=== PATIENT | female | born 1995 | race Caucasian/White ===

== ENCOUNTER 2017-12-10 23:54 | Emergency (ER) | payer SELFPAY ==
[2017-12-11] MEDS ORDERED: diphenhydrAMINE 50 MG Cap PO ONE (00:32)
[2017-12-11] MEDS ORDERED: methylPREDNISolone Sodium Succinate 125 MG/2 ML SDV IM ONE (00:33)
[2017-12-11] MEDS ORDERED: Famotidine 20 MG Tab PO ONE (00:33)
--- NOTE | 2017-12-11 00:39 | EDM.PDOC ---
ED HPI GENERAL MEDICAL PROBLEM - General Chief Complaint: Skin Complaint Stated Complaint: MORELOS Time Seen by Provider: 12/11/17 00:34 Source of Information: Reports: Patient - History of Present Illness INITIAL COMMENTS - FREE TEXT/NARRATIVE: HISTORY AND PHYSICAL: History of present illness: []And presents with an urticarial rash that begin on her left wrist behind her right ear and on her neck she also has lesions on her left buttock and left thigh, lesions began at 8 PM while at work, she's had these symptoms before last March she is unable to determine what she is allergic to her reacting to, as she works at [employer] of the possibilities are an list in that with 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 Past medical history: As per history of present illness and as reviewed below otherwise noncontributory. Surgical history: As per history of present illness and as reviewed below otherwise noncontributory. Social history: No reported history of drug or alcohol abuse. Family history: As per history of present illness and as reviewed below otherwise noncontributory. Physical exam: HEENT: Atraumatic, normocephalic, pupils reactive, negative for conjunctival pallor or scleral icterus, mucous membranes moist, throat clear, neck supple, nontender, trachea midline. no lip swelling tongue swelling or oral pharyngeal edema no stridor Lungs: Clear to auscultation, breath sounds equal bilaterally, chest nontender. Heart: S1S2, regular, negative for clicks, rubs, or JVD. Abdomen: Soft, nondistended, nontender. Negative for masses or hepatosplenomegaly. Negative for costovertebral tenderness. Pelvis: Stable nontender. Genitourinary: Deferred. Rectal: Deferred. Extremities: Atraumatic, negative for cords or calf pain. Neurovascular unremarkable. Neuro: Awake, alert, oriented. Cranial nerves II through XII unremarkable. Cerebellum unremarkable. Motor and sensory unremarkable throughout. Exam nonfocal. urticarial rash left wrist behind the right ear the nape of her neck on the right as well as her left buttock has 3 lesions and one lesion on her lateral left thigh Diagnostics: [ clinical ] Therapeutics: [ Solu-Medrol 125 mg IM Benadryl 50 mg by mouth Famotidine 20 mg by mouth EpiPen adult provided Continue Benadryl and Zantac Consider formal allergy testing ] Impression: [ allergic dermatitis] Definitive disposition and diagnosis as appropriate pending reevaluation and review of above. - Related Data Allergies Allergy/AdvReac Type Severity Reaction Status Date / Time No Known Allergies Allergy Verified 12/10/17 23:57 Home Meds: Home Meds . [No Known Home Meds] 12/10/17 [History] Past Medical History - Past Health History Medical/Surgical History: Denies Medical/Surgical History FULLERETTE History: Reports: Social & Family History - Family History Family Medical History: Noncontributory - Tobacco Use Smoking Status *Q: Never Smoker - Recreational Drug Use Recreational Drug Use: No ED ROS GENERAL - Review of Systems Review Of Systems: ROS reveals no pertinent complaints other than HPI. ED EXAM, SKIN/RASH Exam: See Below Course - Vital Signs Last Recorded V/S: Last Vital Signs Temp 98 F 12/10/17 23:54 Pulse 71 12/10/17 23:54 Resp 18 12/10/17 23:54 BP 123/50 L 12/10/17 23:54 Pulse Ox 94 L 12/10/17 23:54 - Orders/Labs/Meds Orders: Active Orders 24 hr Category Date Time Status Famotidine [Pepcid] Med 12/11/17 00:33 Once 20 mg PO ONETIME ONE diphenhydrAMINE [Benadryl] Med 12/11/17 00:32 Once 50 mg PO ONETIME ONE methylPREDNISolone Sod Succ [Solu-MEDROL] Med 12/11/17 00:33 Once 125 mg IM ONETIME ONE Departure - Departure Time of Disposition: 00:37 Disposition: Home, Self-Care 01 Condition: Good Clinical Impression: Urticaria - Discharge Information Referrals: PCP,None [Primary Care Provider] - Additional Instructions: Benadryl 50 mg every 4-6 hours as needed Zantac 150 milligrams 2 times daily as needed These 2 medications may be taken together EpiPen adult as directed provided to be used for throat swelling or difficulty breathing Follow-up with primary care in 2 weeks sooner as needed consider formal allergy testing with primary care [facility] [address] [place] [id number] The following information is given to patients seen in the emergency department who are being discharged to home. This information is to outline your options for follow-up care. We provide all patients seen in our emergency department with a follow-up referral. The need for follow-up, as well as the timing and circumstances, are variable depending upon the specifics of your emergency department visit. If you don't have a primary care physician on staff, we will provide you with a referral. We always advise you to contact your personal physician following an emergency department visit to inform them of the circumstance of the visit and for follow-up with them and/or the need for any referrals to a consulting specialist. The emergency department will also refer you to a specialist when appropriate. This referral assures that you have the opportunity for follow-up care with a specialist. All of these measure are taken in an effort to provide you with optimal care, which includes your follow-up. Under all circumstances we always encourage you to contact your private physician who remains a resource for coordinating your care. When calling for follow-up care, please make the office aware that this follow-up is from your recent emergency room visit. If for any reason you are refused follow-up, please contact the [facility] emergency department at and asked to speak to the emergency department charge nurse. - My Orders Last 24 Hours: My Active Orders 12/11/17 00:32 diphenhydrAMINE [Benadryl] 50 mg PO ONETIME ONE 12/11/17 00:33 Famotidine [Pepcid] 20 mg PO ONETIME ONE methylPREDNISolone Sod Succ [Solu-MEDROL] 125 mg IM ONETIME ONE - Assessment/Plan Last 24 Hours: My Active Orders 12/11/17 00:32 diphenhydrAMINE [Benadryl] 50 mg PO ONETIME ONE 12/11/17 00:33 Famotidine [Pepcid] 20 mg PO ONETIME ONE methylPREDNISolone Sod Succ [Solu-MEDROL] 125 mg IM ONETIME ONE
== END 2017-12-11 01:45 | disposition home or self-care (01) ==
LOC: MW.ED 23:54
DX: L23.9 Allergic contact dermatitis, unspecified cause (principal)
CPT/HCPCS: 96372; 99282; A9270; J2930; 99283

== ENCOUNTER 2018-05-11 14:02 | Emergency (ER) | payer OTHER ==
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
[2018-05-11] MEDS ORDERED: Ketorolac 30 MG/ML SDV IVPUSH ONE (14:33)
[2018-05-11 14:42] LABS: CHLORIDE,CL 105 mmol/L (98-107); SODIUM,NA 138 mmol/L (136-145)
--- NOTE | 2018-05-11 14:44 | CR ---
EXAMINATION: Pelvis HISTORY: Pain COMPARISON: None TECHNIQUE: AP view FINDINGS: There is no acute osseous abnormality, dislocation, or fracture. Bone mineralization and castillo int spaces are preserved. The SI joints are symmetric. The iliopectineal and ilioischial lines are in tact. An IUD projects over the sacrum. IMPRESSION: No acute osseous abnormality identified.
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
--- NOTE | 2018-05-11 14:56 | CR ---
EXAMINATION: Two-view chest (PA and Lateral views). HISTORY: Shortness of breath. FINDINGS: The trachea is midline. The cardiomediastinal silhouette is within normal limits. No pulmonary infilt rates, effusions or pneumothorax. Osseous structures appear unremarkable. IMPRESSION: No acute cardiopulmonary process.
--- NOTE | 2018-05-11 15:05 | CT ---
EXAMINATION: Non contrast CT head. Coronal and sagittal reformats. HISTORY: Pain FINDINGS: No evidence of intra or extra axial hemorrhage, mass, midline shift, hydrocephalus or edema. No hypoattenuation changes in the major vascular territories to suggest acute infarct. No abnormal intracranial calcifications are detected. No evidence of substantial vascular calcificat ions. Paranasal sinuses and mastoid air cells are well aerated without substantial findings. Orbits and gl obes are symmetric. Pituitary fossa appears unremarkable. Calvarium is intact. No evidence of skull fracture. IMPRESSION: No acute intracranial findings.
--- NOTE | 2018-05-11 15:12 | CT ---
EXAMINATION: CT cervical spine HISTORY: Pain COMPARISON: None TECHNIQUE: Axial CT images obtained through the cervical spine without contrast. Coronal and sagittal reconstructions obtained. FINDINGS: The cervical spinal alignment is normal. The vertebral body heights and disc spaces appear well-maintained. Bone mineralization is normal. No fracture or acute osseous abnormality. Paravertebr al soft tissues are clear. The lung apices are clear. IMPRESSION: 1. No acute findings demonstrated.
[2018-05-11] MEDS ORDERED: Cyclobenzaprine 10 MG Tab PO ONE (15:28)
== END 2018-05-11 16:43 | disposition home or self-care (01) ==
LOC: MW.ED 14:02
DX: S16.1XXA Strain of muscle, fascia and tendon at neck level, initial encounter (principal); S99.911A Unspecified injury of right ankle, initial encounter; V89.2XXA Person injured in unspecified motor-vehicle accident, traffic, initial encounter
CPT/HCPCS: 36415; 70450; 71046; 72125; 72170; 73610; 80053; 81001; 84703; 85025; 85610; 96374; 99285; A9270; G0390; J1885

== ENCOUNTER 2019-01-01 20:52 | Emergency (ER) | payer BC ==
[2019-01-01] MEDS ORDERED: Famotidine 20 MG/2 ML SDV IVPUSH ONE (21:17)
[2019-01-01] MEDS ORDERED: Sodium Chloride 0.9% 10 ML Syringe FLUSH PRN (21:17)
[2019-01-01] MEDS ORDERED: methylPREDNISolone Sodium Succinate 125 MG/2 ML SDV IVPUSH ONE (21:17)
[2019-01-01] MEDS ORDERED: Sodium Chloride 0.9% 2.5 ML Syringe FLUSH PRN (21:17)
[2019-01-01] MEDS ORDERED: diphenhydrAMINE 50 MG/ML SDV IVPUSH ONE (21:17)
--- NOTE | 2019-01-01 21:24 | EDM.PDOC ---
ED HPI GENERAL MEDICAL PROBLEM - General Chief Complaint: Allergic Reaction Stated Complaint: ALLERGIC REACTION Time Seen by Provider: 01/01/19 20:57 Source of Information: Reports: Patient History Limitations: Reports: No Limitations - History of Present Illness INITIAL COMMENTS - FREE TEXT/NARRATIVE: Resents reporting that she took 2 Aleve this morning at 9:00 and started with hives that are now worsening. Some of them have progressed to large water blisters. She denies wheezing, breathing problems facial or mouth swelling. She had a similar reaction before with the naproxen containing medication generalized Pain Score (Numeric/FACES): 5 - Related Data Allergies Allergy/AdvReac Type Severity Reaction Status Date / Time aspirin Allergy Rash Verified 01/01/19 21:03 naproxen [From Aleve] Allergy Rash Verified 01/01/19 21:03 Home Meds: Home Meds . 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: Musculoskeletal History: Reports: None Neurological History: Reports: None Psychiatric History: Reports: None Endocrine/Metabolic History: Reports: None Hematologic History: Reports: None Immunologic History: Reports: None Oncologic (Cancer) History: Reports: None Dermatologic History: Reports: None - Infectious Disease History Infectious Disease History: Reports: None Social & Family History - Family History Family Medical History: Noncontributory - Tobacco Use Smoking Status *Q: Never Smoker - Caffeine Use Caffeine Use: Reports: Soda - Recreational Drug Use Recreational Drug Use: No ED ROS ALLERGIC REACTION - Review of Systems Review Of Systems: ROS reveals no pertinent complaints other than HPI. ED EXAM GENERAL NO PERIP PULSE - Physical Exam Exam: See Below Exam Limited By: No Limitations General Appearance: Alert, No Apparent Distress Ears: Normal External Exam, Normal TMs Nose: Normal Inspection Throat/Mouth: Normal Inspection, Normal Oropharynx, Other (No uveal, mouth, lip or tongue swelling) Head: Atraumatic, Normocephalic Neck: Normal Inspection Respiratory/Chest: No Respiratory Distress, Lungs Clear, Normal Breath Sounds, No Accessory Muscle Use Cardiovascular: Regular Rate, Rhythm, No Murmur Back Exam: Normal Inspection Extremities: Other (Hives) Neurological: Alert, Oriented, No Motor/Sensory Deficits Psychiatric: Normal Affect, Normal Mood Skin Exam: Warm, Dry, Intact, Normal Color, Other (Hives some which have progressed to large bullae on the hands and lower extremities) Lymphatic: No Adenopathy Course - Vital Signs Last Recorded V/S: Last Vital Signs Temp 36.6 C 01/01/19 22:32 Pulse 80 01/01/19 22:32 Resp 16 01/01/19 22:32 BP 123/61 01/01/19 22:32 Pulse Ox 98 01/01/19 22:32 - Orders/Labs/Meds Meds: Medications Discontinued Medications Generic Name Dose Route Start Last Admin Trade Name Freq PRN Reason Stop Dose Admin Diphenhydramine HCl 50 mg 01/01/19 21:17 01/01/19 21:32 Benadryl IVPUSH 01/01/19 21:18 50 mg ONETIME ONE Administration Famotidine 20 mg 01/01/19 21:17 01/01/19 21:32 Pepcid IVPUSH 01/01/19 21:18 20 mg ONETIME ONE Administration Methylprednisolone Sodium Succinate 125 mg 01/01/19 21:17 01/01/19 21:32 Solu-Medrol IVPUSH 01/01/19 21:18 125 mg ONETIME ONE Administration Sodium Chloride 10 ml 01/01/19 21:17 Saline Flush FLUSH ASDIRECTED PRN Keep Vein Open Sodium Chloride 2.5 ml 01/01/19 21:17 Saline Flush FLUSH ASDIRECTED PRN Keep Vein Open Departure - Departure Time of Disposition: 21:22 Disposition: Home, Self-Care 01 Condition: Good Clinical Impression: Hives - Discharge Information Instructions: Allergies, Adult, [id number], Hives, [id number] Referrals: PCP,None [Primary Care Provider] - Forms: ED Department Discharge Additional Instructions: The following information is given to patients seen in the emergency department who are being discharged to home. This information is to outline your options for follow-up care. We provide all patients seen in our emergency department with a follow-up referral. The need for follow-up, as well as the timing and circumstances, are variable depending upon the specifics of your emergency department visit. If you don't have a primary care physician on staff, we will provide you with a referral. We always advise you to contact your personal physician following an emergency department visit to inform them of the circumstance of the visit and for follow-up with them and/or the need for any referrals to a consulting specialist. The emergency department will also refer you to a specialist when appropriate. This referral assures that you have the opportunity for followup care with a specialist. All of these measure are taken in an effort to provide you with optimal care, which includes your followup. Under all circumstances we always encourage you to contact your private physician who remains a resource for coordinating your care. When calling for followup care, please make the office aware that this follow-up is from your recent emergency room visit. If for any reason you are refused follow-up, please contact the [facility] emergency department at and ask to speak to the emergency department charge nurse. [facility] Primary care- Internal Medicine and Family [address] [address] Please take Benadryl every 6 hours for the next 24 hours so that you do not have a recurrence of the rash or itching. Please avoid the medication that caused this problem and follow-up with her provider in the clinic or one of hours for reevaluation and further care. Return to ER as needed and as discussed
== END 2019-01-01 22:32 | disposition home or self-care (01) ==
LOC: MW.ED 20:52
DX: L50.9 Urticaria, unspecified (principal); Z88.6 Allergy status to analgesic agent; Z88.8 Allergy status to other drugs, medicaments and biological substances
CPT/HCPCS: 96374; 96375; 99283; J1200; J2930; J3490

== ENCOUNTER 2019-01-02 19:36 | Emergency (ER) | payer BC ==
--- NOTE | 2019-01-02 19:51 | EDM.PDOC ---
ED HPI GENERAL MEDICAL PROBLEM - General Chief Complaint: Genitourinary Problem Stated Complaint: ALLERGIC REACTION Time Seen by Provider: 01/02/19 19:44 - History of Present Illness INITIAL COMMENTS - FREE TEXT/NARRATIVE: HISTORY AND PHYSICAL: History of present illness: Patient 23-year-old white female presents with a concern of weight vaginal discharge and itching with irritation over the last 24-48 hours she denies history of STD she has had no other symptoms denies abdominal pain fever chills nausea vomiting she was recently seen for presumptive allergic reaction related to naproxen. She is not currently on antibiotics she is monogamous with her boyfriend and uses condoms. Review of systems: As per history of present illness and below otherwise all systems reviewed and negative. Past medical history: As per history of present illness and as reviewed below otherwise noncontributory. Surgical history: As per history of present illness and as reviewed below otherwise noncontributory. Social history: No reported history of drug or alcohol abuse. Family history: As per history of present illness and as reviewed below otherwise noncontributory. Physical exam: HEENT: Atraumatic, normocephalic, pupils reactive, negative for conjunctival pallor or scleral icterus, mucous membranes moist, throat clear, neck supple, nontender, trachea midline. Lungs: Clear to auscultation, breath sounds equal bilaterally, chest nontender. Heart: S1S2, regular, negative for clicks, rubs, or JVD. Abdomen: Soft, nondistended, nontender. Negative for masses or hepatosplenomegaly. Negative for costovertebral tenderness. Pelvis: Stable nontender. Genitourinary: Deferred. Rectal: Deferred. Extremities: Atraumatic, negative for cords or calf pain. Neurovascular unremarkable. Neuro: Awake, alert, oriented. Cranial nerves II through XII unremarkable. Cerebellum unremarkable. Motor and sensory unremarkable throughout. Exam nonfocal. Diagnostics: None Therapeutics: None Impression: #1 vaginitis secondary to Mallory Definitive disposition and diagnosis as appropriate pending reevaluation and review of above. - Related Data Allergies Allergy/AdvReac Type Severity Reaction Status Date / Time aspirin Allergy Rash Verified 01/01/19 21:03 naproxen [From Aleve] Allergy Rash Verified 01/01/19 21:03 Home Meds: Home Meds . 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: Musculoskeletal History: Reports: None Neurological History: Reports: None Psychiatric History: Reports: None Endocrine/Metabolic History: Reports: None Hematologic History: Reports: None Immunologic History: Reports: None Oncologic (Cancer) History: Reports: None Dermatologic History: Reports: None - Infectious Disease History Infectious Disease History: Reports: None Social & Family History - Family History Family Medical History: Noncontributory - Caffeine Use Caffeine Use: Reports: Soda ED ROS GENERAL - Review of Systems Review Of Systems: ROS reveals no pertinent complaints other than HPI. ED EXAM, GENERAL - Physical Exam Exam: See Below (See dictation) Departure - Departure Time of Disposition: 19:50 Disposition: Home, Self-Care 01 Condition: Good Clinical Impression: Vulvovaginitis mallory albicans - Discharge Information Referrals: PCP,None [Primary Care Provider] - Additional Instructions: The following information is given to patients seen in the emergency department who are being discharged to home. This information is to outline your options for follow-up care. We provide all patients seen in our emergency department with a follow-up referral. The need for follow-up, as well as the timing and circumstances, are variable depending upon the specifics of your emergency department visit. If you don't have a primary care physician on staff, we will provide you with a referral. We always advise you to contact your personal physician following an emergency department visit to inform them of the circumstance of the visit and for follow-up with them and/or the need for any referrals to a consulting specialist. The emergency department will also refer you to a specialist when appropriate. This referral assures that you have the opportunity for followup care with a specialist. All of these measure are taken in an effort to provide you with optimal care, which includes your followup. Under all circumstances we always encourage you to contact your private physician who remains a resource for coordinating your care. When calling for followup care, please make the office aware that this follow-up is from your recent emergency room visit. If for any reason you are refused follow-up, please contact the [facility] emergency department at and asked to speak to the emergency department charge nurse. Jackie Lewis as directed follow-up DIRECTIONAL DRILLER for routine follow-up in general women's health exam
== END 2019-01-02 20:06 | disposition home or self-care (01) ==
LOC: MW.ED 19:36
DX: B37.3 Candidiasis of vulva and vagina (principal); Z88.6 Allergy status to analgesic agent; Z88.8 Allergy status to other drugs, medicaments and biological substances
CPT/HCPCS: 99282; 99283

== ENCOUNTER 2019-04-22 10:15 | Emergency (ER) | payer SELFPAY ==
--- NOTE | 2019-04-22 10:29 | EDM.PDOC ---
ED HPI GENERAL MEDICAL PROBLEM - General Chief Complaint: Upper Extremity Injury/Pain Stated Complaint: RIGHT HAND PAIN Time Seen by Provider: 04/22/19 10:29 Source of Information: Reports: Patient History Limitations: Reports: No Limitations - History of Present Illness INITIAL COMMENTS - FREE TEXT/NARRATIVE: HISTORY AND PHYSICAL: History of present illness: Patient is a 24-year-old female presents to the ED with complaint of right hand pain. States yesterday she punched a counter. Plenty of pain in the 5th metacarpal of the right hand. She denies proximal pain or other injuries no other complaints at this time. Review of systems: As per history of present illness and below otherwise all systems reviewed and negative. Past medical history: As per history of present illness and as reviewed below otherwise noncontributory. Surgical history: As per history of present illness and as reviewed below otherwise noncontributory. Social history: No reported history of drug or alcohol abuse. Family history: As per history of present illness and as reviewed below otherwise noncontributory. Physical exam: General: Patient sitting comfortably in no acute distress and nontoxic appearing HEENT: Atraumatic, normocephalic, pupils reactive, negative for conjunctival pallor or scleral icterus, mucous membranes moist, throat clear, neck supple, nontender, trachea midline. No meningeal signs. Lungs: Clear to auscultation, breath sounds equal bilaterally, chest nontender. Heart: S1S2, regular, negative for clicks, rubs, or overt murmur. Abdomen: Soft, nondistended, nontender. Negative for masses or hepatosplenomegaly. Negative for costovertebral tenderness. No rigidity, rebound , guarding. Pelvis: Stable nontender. Genitourinary: Deferred. Rectal: Deferred. Extremities: Swelling and ecchymosis to the hyperthenar eminence and along the fourth and fifth metacarpals on the volar aspect. Pain to palpation of the 5th metacarpal. CMS intact distally. negative for cords or calf pain. Neurovascular unremarkable. Neuro: Awake, alert, oriented. Cranial nerves II through XII unremarkable. Cerebellum unremarkable. Motor and sensory unremarkable throughout. Exam nonfocal. Notes: Diagnostics: x-ray right hand Therapeutics: Toradol 60mg IM Ulnar gutter splint Prescriptions: Tramadol Impression: Boxer fracture Plan: 1. Ice, elevate, and motrin or tylenol as needed. You may take tramadol as needed, do not take while driving as it may make you drowsy 2. Follow up with orthopedics, please call the number provided to schedule an appointment 3. Return to ED as needed as discussed Definitive disposition and diagnosis as appropriate pending reevaluation and review of above. right hand Pain Score (Numeric/FACES): 7 - Related Data Allergies Allergy/AdvReac Type Severity Reaction Status Date / Time aspirin Allergy Rash Verified 01/01/19 21:03 naproxen [From Aleve] Allergy Rash Verified 01/01/19 21:03 Home Meds: Home Meds . 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: Musculoskeletal History: Reports: None Neurological History: Reports: None Psychiatric History: Reports: None Endocrine/Metabolic History: Reports: None Hematologic History: Reports: None Immunologic History: Reports: None Oncologic (Cancer) History: Reports: None Dermatologic History: Reports: None - Infectious Disease History Infectious Disease History: Reports: None Social & Family History - Family History Family Medical History: Noncontributory - Tobacco Use Smoking Status *Q: Never Smoker Second Hand Smoke Exposure: No - Caffeine Use Caffeine Use: Reports: Soda - Recreational Drug Use Recreational Drug Use: No Review of Systems - Review of Systems Review Of Systems: ROS reveals no pertinent complaints other than HPI. ED EXAM, GENERAL - Physical Exam Exam: See Below (See dictation) Course - Vital Signs Last Recorded V/S: Last Vital Signs Temp 97 F 04/22/19 10:23 Pulse 69 04/22/19 10:23 Resp 20 04/22/19 10:23 BP 110/59 L 04/22/19 10:23 Pulse Ox 100 04/22/19 10:23 - Orders/Labs/Meds Orders: Active Orders 24 hr Category Date Time Status Hand Comp Min 3V Rt [CR] Stat Exams 04/22/19 10:29 Taken Meds: Medications Discontinued Medications Generic Name Dose Route Start Last Admin Trade Name Freq PRN Reason Stop Dose Admin Ketorolac Tromethamine 60 mg 04/22/19 11:07 04/22/19 11:16 Toradol IM 04/22/19 11:08 60 mg ONETIME ONE Administration Departure - Departure Time of Disposition: 11:26 Disposition: Home, Self-Care 01 Condition: Good Clinical Impression: Boxers fracture - Discharge Information Referrals: PCP,None [Primary Care Provider] - Forms: ED Department Discharge Additional Instructions: The following information is given to patients seen in the emergency department who are being discharged to home. This information is to outline your options for follow-up care. We provide all patients seen in our emergency department with a follow-up referral. The need for follow-up, as well as the timing and circumstances, are variable depending upon the specifics of your emergency department visit. If you don't have a primary care physician on staff, we will provide you with a referral. We always advise you to contact your personal physician following an emergency department visit to inform them of the circumstance of the visit and for follow-up with them and/or the need for any referrals to a consulting specialist. The emergency department will also refer you to a specialist when appropriate. This referral assures that you have the opportunity for follow-up care with a specialist. All of these measure are taken in an effort to provide you with optimal care, which includes your follow-up. Under all circumstances we always encourage you to contact your private physician who remains a resource for coordinating your care. When calling for follow-up care, please make the office aware that this follow-up is from your recent emergency room visit. If for any reason you are refused follow-up, please contact the [facility] Emergency Department at and asked to speak to the emergency department charge nurse. [facility] Specialty Care - Orthopedic Clinic Professional Building [address] [facility], [address] [place] [address] Dr Phillips, Orthopedist [facility] [address] [place] [address] [address] Oconnor - Dr Giron - Dr [facility] [address] [place] [id number] [facility] [address] [place] [address] 1. Ice, elevate, and motrin or tylenol as needed. You may take tramadol as needed, do not take while driving as it may make you drowsy 2. Follow up with orthopedics, please call the number provided to schedule an appointment 3. Return to ED as needed as discussed - My Orders Last 24 Hours: My Active Orders 04/22/19 10:29 Hand Comp Min 3V Rt [CR] Stat - Assessment/Plan Last 24 Hours: My Active Orders 04/22/19 10:29 Hand Comp Min 3V Rt [CR] Stat
[2019-04-22] MEDS ORDERED: Ketorolac 60 MG/2 ML SDV IM ONE (11:07)
--- NOTE | 2019-04-22 11:31 | CR ---
INDICATION: Trauma. The patient punched a glass table. TECHNIQUE: Three views of the right hand. FINDINGS: Boxer`s type fracture distal right 5th metacarpal with soft tissue swelling. A fracture lucency appears to extend into the metacarpal head. No other fractures are confidently identified. IMPRESSION: Acute complete angulated non distracted fracture distal right 5th metacarpal. Dictated by Tony Calix MD @ Apr 22 2019 11:29AM Signed by Dr. Tony Calix @ Apr 22 2019 11:31AM
== END 2019-04-22 11:55 | disposition home or self-care (01) ==
LOC: MW.ED 10:15
DX: S62.336A Displaced fracture of neck of fifth metacarpal bone, right hand, initial encounter for closed fracture (principal); Z88.8 Allergy status to other drugs, medicaments and biological substances; W22.8XXA Striking against or struck by other objects, initial encounter
CPT/HCPCS: 73130; 96372; 99283; J1885

== ENCOUNTER 2019-04-30 11:30 | Observation (INO) | payer OTHER ==
[2019-04-30] MEDS ORDERED: Sodium Chloride 0.9% 10 ML Syringe FLUSH PRN (11:46)
[2019-04-30] MEDS ORDERED: Sodium Chloride 0.9% 1,000 ML IV ONE (11:46)
[2019-04-30] MEDS ORDERED: Sodium Chloride 0.9% 2.5 ML Syringe FLUSH PRN (11:46)
--- NOTE | 2019-04-30 11:53 | EDM.PDOCBH ---
ED HPI GENERAL MEDICAL PROBLEM - General Chief Complaint: Drug or Alcohol Abuse Stated Complaint: DRUG & ALCOHOL Time Seen by Provider: 04/30/19 11:41 Source of Information: Reports: Patient History Limitations: Reports: No Limitations - History of Present Illness INITIAL COMMENTS - FREE TEXT/NARRATIVE: History of present illness: []Patient took an overdose of approximately 30 Zoloft 50mg tablets and a handful 15 tablets 50 mg tramadol at 10 AM. She did a right in front of her boyfriend and mother who both made her vomit immediately. She vomited up several pills. She then had a court appointment and did vomit in the courthouse at approximate 10:30. On her way home from the courthouse she continued to vomit and her family brought her directly to the emergency room. A blue Powerade and was continuing to vomit in the ED a blue tinged color fluid. Patient arrived awake and alert without any complaints. Review of systems: As per history of present illness and below otherwise all systems reviewed and negative. Past medical history: As per history of present illness and as reviewed below otherwise noncontributory. Surgical history: As per history of present illness and as reviewed below otherwise noncontributory. Social history: No reported history of drug or alcohol abuse. Family history: As per history of present illness and as reviewed below otherwise noncontributory. Physical exam: General: Well developed, well nourished in NAD HEENT: Atraumatic, normocephalic, pupils reactive, negative for conjunctival pallor or scleral icterus, mucous membranes moist, throat clear, neck supple, nontender, trachea midline. Lungs: Clear to auscultation, breath sounds equal bilaterally, chest nontender. Heart: S1S2, regular, negative for clicks, rubs, or JVD. Abdomen: NABS, Soft, nondistended, nontender. Negative for masses or hepatosplenomegaly. Negative for costovertebral tenderness. Pelvis: Stable nontender. Genitourinary: Deferred. Rectal: Deferred. Extremities: Atraumatic, negative for cords or calf pain. Neurovascular unremarkable. Neuro: Awake, alert, oriented. Cranial nerves II through XII unremarkable. Cerebellum unremarkable. Motor and sensory unremarkable throughout. Exam nonfocal. Skin:warm and dry Diagnostics: EKG. CBC, chemistry, aspirin and Tylenol levels, alcohol drug screen, TSH, test, Therapeutics: court recording monitor, IV fluids ED Course: Poison control called stated she would need at least 8 hours of monitoring before she is medically cleared for psychiatric evaluation Dr. Zunigas consulted and will admit this patient to the ICU for monitoring her to transfer to psychiatric facility Impression: Overdose Prescriptions: None Plan: Admit Definitive disposition and diagnosis as appropriate pending reevaluation and review of above. Headache Pain Score (Numeric/FACES): 5 - Related Data Allergies Allergy/AdvReac Type Severity Reaction Status Date / Time aspirin Allergy Rash Verified 04/30/19 11:37 naproxen [From Aleve] Allergy Rash Verified 04/30/19 11:37 Home Meds: Home Meds Sertraline [Zoloft] 50 mg PO DAILY 04/30/19 [History] Past Medical History - Past Health History Medical/Surgical History: Denies Medical/Surgical History HEENT History: Reports: None Cardiovascular History: Reports: None Respiratory History: Reports: None Gastrointestinal History: Reports: None Genitourinary History: Reports: Other (See Below) Other Genitourinary History: UTI when she was 17y/o 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: Musculoskeletal History: Reports: None Neurological History: Reports: None Psychiatric History: Reports: Anxiety, Depression Endocrine/Metabolic History: Reports: None Hematologic History: Reports: None Immunologic History: Reports: None Oncologic (Cancer) History: Reports: None Dermatologic History: Reports: None - Infectious Disease History Infectious Disease History: Reports: None Social & Family History - Family History Family Medical History: Noncontributory - Tobacco Use Smoking Status *Q: Never Smoker Second Hand Smoke Exposure: No - Caffeine Use Caffeine Use: Reports: Coffee - Recreational Drug Use Recreational Drug Use: No ED ROS GENERAL - Review of Systems Review Of Systems: See Below ED EXAM, BEHAVIORAL HEALTH - Physical Exam Exam: See Below COURSE, BEHAVIORAL HEALTH COMP - Course Vital Signs: Last Vital Signs Temp 98.3 F 04/30/19 11:37 Pulse 88 04/30/19 11:37 Resp 16 04/30/19 11:37 BP 139/79 04/30/19 11:37 Pulse Ox 97 04/30/19 11:37 Orders, Labs, Meds: Active Orders 24 hr Category Date Time Status Patient Status [ADT] Stat ADT 04/30/19 12:15 Active Cardiac Monitoring [RC] . DIRECTED Care 04/30/19 11:46 Active EKG Documentation Completion [RC] STAT Care 04/30/19 11:46 Active Involuntary Admission/Hold [RC] ASDIRECTED Care 04/30/19 12:03 Active Pulse Oximetry [RC] ASDIRECTED Care 04/30/19 11:46 Active Sodium Chloride 0.9% [Saline Flush] Med 04/30/19 11:46 Active 10 ml FLUSH ASDIRECTED PRN Sodium Chloride 0.9% [Saline Flush] Med 04/30/19 11:46 Active 2.5 ml FLUSH ASDIRECTED PRN Saline Lock Insert [OM.PC] Stat Oth 04/30/19 11:46 Ordered Medication Orders Acetaminophen (Tylenol) 650 mg PO Q4H PRN PRN Reason: Pain (mild 1-3) Lorazepam (Ativan) 1 mg IVPUSH Q4H PRN PRN Reason: Seizures Ondansetron HCl (Zofran) 4 mg IVPUSH Q4H PRN PRN Reason: Nausea Sodium Chloride (Saline Flush) 10 ml FLUSH ASDIRECTED PRN PRN Reason: Keep Vein Open Last Admin: 04/30/19 11:56 Dose: 10 ml Sodium Chloride (Saline Flush) 2.5 ml FLUSH ASDIRECTED PRN PRN Reason: Keep Vein Open Last Admin: 04/30/19 11:56 Dose: 2.5 ml Laboratory Tests 04/30/19 04/30/19 04/30/19 Range/Units 11:50 11:50 11:51 WBC 10.78 (4.0-11.0) K/uL RBC 4.92 (4.30-5.90) M/uL Hgb 13.6 (12.0-16.0) g/dL Hct 40.6 (36.0-46.0) % MCV 82.5 (80.0-98.0) fL MCH 27.6 (27.0-32.0) pg MCHC 33.5 (31.0-37.0) g/dL RDW Std Deviation 48.2 (28.0-62.0) fl RDW Coeff of Maurizio 16 H (11.0-15.0) % Plt Count 347 (150-400) K/uL MPV 11.70 (7.40-12.00) fL Neut % (Auto) 62.5 (48.0-80.0) % Lymph % (Auto) 27.0 (16.0-40.0) % [place] % (Auto) 9.6 (0.0-15.0) % Eos % (Auto) 0.5 (0.0-7.0) % Baso % (Auto) 0.4 (0.0-1.5) % Neut # (Auto) 6.7 H (1.4-5.7) K/uL Lymph # (Auto) 2.9 H (0.6-2.4) K/uL [place] # (Auto) 1.0 H (0.0-0.8) K/uL Eos # (Auto) 0.1 (0.0-0.7) K/uL Baso # (Auto) 0.0 (0.0-0.1) K/uL Nucleated RBC % 0.0 /100WBC Nucleated RBCs # 0 K/uL Sodium 142 (136-145) mmol/L Potassium 3.9 (3.5-5.1) mmol/L Chloride 107 (98-107) mmol/L Carbon Dioxide 21.9 (21.0-32.0) mmol/L BUN 13 (7.0-18.0) mg/dL Creatinine 0.8 (0.6-1.0) mg/dL Est Cr Clr Drug Dosing 103.26 mL/min Estimated GFR (MDRD) > 60.0 ml/min Glucose 101 (74-106) mg/dL Calcium 9.6 (8.5-10.1) mg/dL Magnesium 1.8 (1.8-2.4) mg/dL Total Bilirubin 0.7 (0.2-1.0) mg/dL AST 17 (15-37) IU/L ALT 24 (14-63) IU/L Alkaline Phosphatase 70 (46-116) U/L Total Protein 7.5 (6.4-8.2) g/dL Albumin 3.9 (3.4-5.0) g/dL Globulin 3.6 (2.6-4.0) g/dL Albumin/Globulin Ratio 1.1 (0.9-1.6) TSH 3rd Generation 1.10 (0.36-3.74) uIU/mL Urine Color YELLOW Urine Appearance SLT CLOUDY Urine pH 5.5 (5.0-8.0) Ur Specific [place] 1.025 (1.001-1.035) Urine Protein NEGATIVE (NEGATIVE) mg/dL Urine Glucose (UA) NEGATIVE (NEGATIVE) mg/dL Urine Ketones NEGATIVE (NEGATIVE) mg/dL Urine Occult Blood NEGATIVE (NEGATIVE) Urine Nitrite NEGATIVE (NEGATIVE) Urine Bilirubin NEGATIVE (NEGATIVE) Urine Urobilinogen 0.2 (<2.0) EU/dL Ur Leukocyte Esterase NEGATIVE (NEGATIVE) Urine RBC 0-1 (0-2/HPF) Urine WBC 0-2 (0-5/HPF) Ur Epithelial Cells MODERATE (NONE-FEW) Urine Bacteria FEW (NEGATIVE) Urine HCG, Qual (NEGATIVE) Salicylates <0.2 (0-20) mg/dL Urine Opiates Screen (NEGATIVE) Ur Oxycodone Screen (NEGATIVE) Urine Methadone Screen (NEGATIVE) Acetaminophen <2.0 ug/mL Ur Barbiturates Screen (NEGATIVE) Ur Phencyclidine Scrn (NEGATIVE) Ur Amphetamine Screen (NEGATIVE) U Methamphetamines Scrn (NEGATIVE) U Benzodiazepines Scrn (NEGATIVE) U Cocaine Metab Screen (NEGATIVE) U Marijuana (THC) Screen (NEGATIVE) Ethyl Alcohol < 3.0 mg/dL 04/30/19 04/30/19 Range/Units 11:51 11:51 WBC (4.0-11.0) K/uL RBC (4.30-5.90) M/uL Hgb (12.0-16.0) g/dL Hct (36.0-46.0) % MCV (80.0-98.0) fL MCH (27.0-32.0) pg MCHC (31.0-37.0) g/dL RDW Std Deviation (28.0-62.0) fl RDW Coeff of Maurizio (11.0-15.0) % Plt Count (150-400) K/uL MPV (7.40-12.00) fL Neut % (Auto) (48.0-80.0) % Lymph % (Auto) (16.0-40.0) % [place] % (Auto) (0.0-15.0) % Eos % (Auto) (0.0-7.0) % Baso % (Auto) (0.0-1.5) % Neut # (Auto) (1.4-5.7) K/uL Lymph # (Auto) (0.6-2.4) K/uL [place] # (Auto) (0.0-0.8) K/uL Eos # (Auto) (0.0-0.7) K/uL Baso # (Auto) (0.0-0.1) K/uL Nucleated RBC % /100WBC Nucleated RBCs # K/uL Sodium (136-145) mmol/L Potassium (3.5-5.1) mmol/L Chloride (98-107) mmol/L Carbon Dioxide (21.0-32.0) mmol/L BUN (7.0-18.0) mg/dL Creatinine (0.6-1.0) mg/dL Est Cr Clr Drug Dosing mL/min Estimated GFR (MDRD) ml/min Glucose (74-106) mg/dL Calcium (8.5-10.1) mg/dL Magnesium (1.8-2.4) mg/dL Total Bilirubin (0.2-1.0) mg/dL AST (15-37) IU/L ALT (14-63) IU/L Alkaline Phosphatase (46-116) U/L Total Protein (6.4-8.2) g/dL Albumin (3.4-5.0) g/dL Globulin (2.6-4.0) g/dL Albumin/Globulin Ratio (0.9-1.6) TSH 3rd Generation (0.36-3.74) uIU/mL Urine Color Urine Appearance Urine pH (5.0-8.0) Ur Specific [place] (1.001-1.035) Urine Protein (NEGATIVE) mg/dL Urine Glucose (UA) (NEGATIVE) mg/dL Urine Ketones (NEGATIVE) mg/dL Urine Occult Blood (NEGATIVE) Urine Nitrite (NEGATIVE) Urine Bilirubin (NEGATIVE) Urine Urobilinogen (<2.0) EU/dL Ur Leukocyte Esterase (NEGATIVE) Urine RBC (0-2/HPF) Urine WBC (0-5/HPF) Ur Epithelial Cells (NONE-FEW) Urine Bacteria (NEGATIVE) Urine HCG, Qual NEGATIVE (NEGATIVE) Salicylates (0-20) mg/dL Urine Opiates Screen NEGATIVE (NEGATIVE) Ur Oxycodone Screen NEGATIVE (NEGATIVE) Urine Methadone Screen NEGATIVE (NEGATIVE) Acetaminophen ug/mL Ur Barbiturates Screen NEGATIVE (NEGATIVE) Ur Phencyclidine Scrn NEGATIVE (NEGATIVE) Ur Amphetamine Screen NEGATIVE (NEGATIVE) U Methamphetamines Scrn NEGATIVE (NEGATIVE) U Benzodiazepines Scrn NEGATIVE (NEGATIVE) U Cocaine Metab Screen NEGATIVE (NEGATIVE) U Marijuana (THC) Screen NEGATIVE (NEGATIVE) Ethyl Alcohol mg/dL Medications Generic Name Dose Route Start Last Admin Trade Name Freq PRN Reason Stop Dose Admin Acetaminophen 650 mg 04/30/19 13:15 Tylenol PO Q4H PRN Pain (mild 1-3) Lorazepam 1 mg 04/30/19 13:38 Ativan IVPUSH Q4H PRN Seizures Ondansetron HCl 4 mg 04/30/19 13:15 Zofran IVPUSH Q4H PRN Nausea Sodium Chloride 10 ml 04/30/19 11:46 04/30/19 11:56 Saline Flush FLUSH 10 ml ASDIRECTED PRN Administration Keep Vein Open Sodium Chloride 2.5 ml 04/30/19 11:46 04/30/19 11:56 Saline Flush FLUSH 2.5 ml ASDIRECTED PRN Administration Keep Vein Open Discontinued Medications Generic Name Dose Route Start Last Admin Trade Name Freq PRN Reason Stop Dose Admin Sodium Chloride 1,000 mls @ 999 mls/hr 04/30/19 11:46 04/30/19 11:56 Normal Saline IV 04/30/19 12:46 999 mls/hr .Bolus ONE Administration Ibuprofen 400 mg 04/30/19 13:15 Motrin PO Q6H PRN Pain (mild 1-3) Departure - Departure Time of Disposition: 12:45 Disposition: Admitted As Inpatient 68 Condition: Good Clinical Impression: Overdose Qualifiers: Encounter type: initial encounter Injury intent: intentional self-harm Qualified Code(s): T50.902A - Poisoning by unspecified drugs, medicaments and biological substances, intentional self-harm, initial encounter - Discharge Information *PRESCRIPTION DRUG MONITORING PROGRAM REVIEWED*: No *COPY OF PRESCRIPTION DRUG MONITORING REPORT IN PATIENT [place]: No - My Orders Last 24 Hours: My Active Orders 04/30/19 11:46 Cardiac Monitoring [RC] . DIRECTED EKG Documentation Completion [RC] STAT Pulse Oximetry [RC] ASDIRECTED Sodium Chloride 0.9% [Saline Flush] 10 ml FLUSH ASDIRECTED PRN Sodium Chloride 0.9% [Saline Flush] 2.5 ml FLUSH ASDIRECTED PRN Saline Lock Insert [OM.PC] Stat 04/30/19 12:03 Involuntary Admission/Hold [RC] ASDIRECTED 04/30/19 12:15 Patient Status [ADT] Stat - Assessment/Plan Last 24 Hours: My Active Orders 04/30/19 11:46 Cardiac Monitoring [RC] . DIRECTED EKG Documentation Completion [RC] STAT Pulse Oximetry [RC] ASDIRECTED Sodium Chloride 0.9% [Saline Flush] 10 ml FLUSH ASDIRECTED PRN Sodium Chloride 0.9% [Saline Flush] 2.5 ml FLUSH ASDIRECTED PRN Saline Lock Insert [OM.PC] Stat 04/30/19 12:03 Involuntary Admission/Hold [RC] ASDIRECTED 04/30/19 12:15 Patient Status [ADT] Stat
[2019-04-30 12:31] LABS: ACETAMINOPHEN <2.0 ug/mL
[2019-04-30 12:41] LABS: BLOOD UREA NITROGEN,BUN 13 mg/dL (7.0-18.0); CARBON DIOXIDE,CO2 21.9 mmol/L (21.0-32.0); CHLORIDE,CL 107 mmol/L (98-107); GLUCOSE RANDOM 101 mg/dL (74-106); POTASSIUM,K 3.9 mmol/L (3.5-5.1); SODIUM,NA 142 mmol/L (136-145)
--- NOTE | 2019-04-30 13:11 | PCM.HP.2 ---
<Maritza Burns M - Last Filed: 04/30/19 20:57> H&P History of Present Illness - General Date of Service: 04/30/19 Admit Problem/Dx: Admission Diagnosis/Problem Admission Diagnosis/Problem Suicide attempt Source of Information: Patient, Family (Mother Kalina and significant other, Alexy at bedside) History Limitations: Reports: No Limitations - History of Present Illness Initial Comments - Free Text/Narative: This 24 year old female with pmh of depression presented to the ED with family after she took approximately 13 Tramadol tabs and 20 Zoloft tabs. She did vomit after this, but family is concerned for her mental health. She denies suicidal ideation was her exact intent. She is currently involved in a court case where she is charged with negligent homicide involving a car accident. She reports she took the medication because she is scared and doesn't "want to feel like this anymore". He significant other at the bedside is very scared as he reports she attempted to jump out his moving vehicle last night. Her mother reports she has history of cutting herself as well. Wilfredstephan very limited on amount of history she is giving, but after these incidences were brought up she was forth right with the answers. She reports she started cutting her thighs in high school, this stopped a couple years ago, but she recently started cutting again. She reports she was started on Zoloft by her women's health provider in January, took them for about 1 month and then stopped. She reports they initially helped but then she felt herself getting sluggish and sad again so she stopped taking them. She reports being started on Citalopram in high school, which she took for 2 weeks and saw no improvement so she stopped. She denies alcohol use, no recreational drug use and no tobacco use. In the ED labwork WNL. Urine tox negative. UA negative. ETOH negative. VS Stable. Poison control notified and recommended 8 hours medical clearance on cardiac monitoring. She will be admitted observation in the meantime. - Related Data Allergies/Adverse Reactions: Allergies Allergy/AdvReac Type Severity Reaction Status Date / Time aspirin Allergy Rash Verified 04/30/19 11:37 naproxen [From Aleve] Allergy Rash Verified 04/30/19 11:37 Past Medical History - Past Health History Medical/Surgical History: Denies Medical/Surgical History HEENT History: Reports: None Cardiovascular History: Reports: None. Denies: CAD, High Cholesterol, Hypertension Respiratory History: Reports: None. Denies: Asthma Gastrointestinal History: Reports: None Genitourinary History: Reports: Other (See Below) Other Genitourinary History: UTI when she was 17y/o [employer] History: Reports: Musculoskeletal History: Reports: None Neurological History: Reports: None Psychiatric History: Reports: ADHD (took adderall as a teenager, has since stopped taking this.), Anxiety, Depression, Other (See Below) (Cutting). Denies : Psych Hospitalization(s), Suicide Attempt Endocrine/Metabolic History: Reports: None. Denies: Diabetes, Type II, Obesity/ BMI 30+ Hematologic History: Reports: None Immunologic History: Reports: None Oncologic (Cancer) History: Reports: None Dermatologic History: Reports: None - Infectious Disease History Infectious Disease History: Reports: None - Past Surgical History Cardiovascular Surgical History: Reports: None Female Surgical History: Reports: None Social & Family History - Family History Family Medical History: Noncontributory - Tobacco Use Smoking Status *Q: Never Smoker Second Hand Smoke Exposure: No - Caffeine Use Caffeine Use: Reports: Coffee - Alcohol Use Alcohol Use History: No - Recreational Drug Use Recreational Drug Use: No - Living Situation & Occupation Living situation: Reports: with Family H&P Review of Systems - Review of Systems: Review Of Systems: See Below General: Reports: Malaise. Denies: Fever, Chills HEENT: Reports: No Symptoms. Denies: Headaches, Sinus Congestion, Sore Throat Pulmonary: Reports: No Symptoms. Denies: Shortness of Breath Cardiovascular: Reports: No Symptoms. Denies: Chest Pain Gastrointestinal: Reports: Nausea, Vomiting (after taking pills). Denies: Abdominal Pain, Black Stool, Bloody Stool Genitourinary: Reports: No Symptoms. Denies: Dysuria, Frequency, Burning Musculoskeletal: Reports: No Symptoms. Denies: Neck Pain Skin: Reports: No Symptoms Psychiatric: Reports: Depression, Anxiety. Denies: Hallucinations Neurological: Reports: No Symptoms Hematologic/Lymphatic: Reports: No Symptoms Immunologic: Reports: No Symptoms Exam - Exam Exam: See Below - Vital Signs Vital Signs: Last Vital Signs Temp 98.3 F 04/30/19 11:37 Pulse 88 04/30/19 11:37 Resp 16 04/30/19 11:37 BP 139/79 04/30/19 11:37 Pulse Ox 97 04/30/19 11:37 Weight: 75.75 kg - Exam General: Alert, Oriented, Cooperative HEENT: Conjunctiva Clear, Mucosa Moist & [place], Posterior Pharynx Clear Lungs: Clear to Auscultation, Normal Respiratory Effort Cardiovascular: Regular Rate, Regular Rhythm GI/Abdominal Exam: Normal Bowel Sounds, Soft, Non-Tender Extremities: Normal Inspection, Normal Range of Motion, Non-Tender, No Pedal Edema Skin: Wound (very superficial lacerations noted to R thigh from self inflicted harm. Old scars noted as well from previous cutting) Neuro Extensive - Mental Status: Alert, Oriented x3 Neuro Extensive - Motor, Sensory, Reflexes: CN II-XII Intact Psychiatric: Alert, Anxious, Depressed, Suicidal Ideation - Patient Data Lab Results Last 24 hrs: Laboratory Results - last 24 hr 04/30/19 04/30/19 04/30/19 Range/Units 11:50 11:50 11:51 WBC 10.78 (4.0-11.0) K/uL RBC 4.92 (4.30-5.90) M/uL Hgb 13.6 (12.0-16.0) g/dL Hct 40.6 (36.0-46.0) % MCV 82.5 (80.0-98.0) fL MCH 27.6 (27.0-32.0) pg MCHC 33.5 (31.0-37.0) g/dL RDW Std Deviation 48.2 (28.0-62.0) fl RDW Coeff of Maurizio 16 H (11.0-15.0) % Plt Count 347 (150-400) K/uL MPV 11.70 (7.40-12.00) fL Neut % (Auto) 62.5 (48.0-80.0) % Lymph % (Auto) 27.0 (16.0-40.0) % Garrett % (Auto) 9.6 (0.0-15.0) % Eos % (Auto) 0.5 (0.0-7.0) % Baso % (Auto) 0.4 (0.0-1.5) % Neut # (Auto) 6.7 H (1.4-5.7) K/uL Lymph # (Auto) 2.9 H (0.6-2.4) K/uL Garrett # (Auto) 1.0 H (0.0-0.8) K/uL Eos # (Auto) 0.1 (0.0-0.7) K/uL Baso # (Auto) 0.0 (0.0-0.1) K/uL Nucleated RBC % 0.0 /100WBC Nucleated RBCs # 0 K/uL Sodium 142 (136-145) mmol/L Potassium 3.9 (3.5-5.1) mmol/L Chloride 107 (98-107) mmol/L Carbon Dioxide 21.9 (21.0-32.0) mmol/L BUN 13 (7.0-18.0) mg/dL Creatinine 0.8 (0.6-1.0) mg/dL Est Cr Clr Drug Dosing 103.26 mL/min Estimated GFR (MDRD) > 60.0 ml/min Glucose 101 (74-106) mg/dL Calcium 9.6 (8.5-10.1) mg/dL Magnesium 1.8 (1.8-2.4) mg/dL Total Bilirubin 0.7 (0.2-1.0) mg/dL AST 17 (15-37) IU/L ALT 24 (14-63) IU/L Alkaline Phosphatase 70 (46-116) U/L Total Protein 7.5 (6.4-8.2) g/dL Albumin 3.9 (3.4-5.0) g/dL Globulin 3.6 (2.6-4.0) g/dL Albumin/Globulin Ratio 1.1 (0.9-1.6) TSH 3rd Generation 1.10 (0.36-3.74) uIU/mL Urine Color YELLOW Urine Appearance SLT CLOUDY Urine pH 5.5 (5.0-8.0) Ur Specific [place] 1.025 (1.001-1.035) Urine Protein NEGATIVE (NEGATIVE) mg/dL Urine Glucose (UA) NEGATIVE (NEGATIVE) mg/dL Urine Ketones NEGATIVE (NEGATIVE) mg/dL Urine Occult Blood NEGATIVE (NEGATIVE) Urine Nitrite NEGATIVE (NEGATIVE) Urine Bilirubin NEGATIVE (NEGATIVE) Urine Urobilinogen 0.2 (<2.0) EU/dL Ur Leukocyte Esterase NEGATIVE (NEGATIVE) Urine RBC 0-1 (0-2/HPF) Urine WBC 0-2 (0-5/HPF) Ur Epithelial Cells MODERATE (NONE-FEW) Urine Bacteria FEW (NEGATIVE) Urine HCG, Qual (NEGATIVE) Salicylates <0.2 (0-20) mg/dL Urine Opiates Screen (NEGATIVE) Ur Oxycodone Screen (NEGATIVE) Urine Methadone Screen (NEGATIVE) Acetaminophen <2.0 ug/mL Ur Barbiturates Screen (NEGATIVE) Ur Phencyclidine Scrn (NEGATIVE) Ur Amphetamine Screen (NEGATIVE) U Methamphetamines Scrn (NEGATIVE) U Benzodiazepines Scrn (NEGATIVE) U Cocaine Metab Screen (NEGATIVE) U Marijuana (THC) Screen (NEGATIVE) Ethyl Alcohol < 3.0 mg/dL 04/30/19 04/30/19 Range/Units 11:51 11:51 WBC (4.0-11.0) K/uL RBC (4.30-5.90) M/uL Hgb (12.0-16.0) g/dL Hct (36.0-46.0) % MCV (80.0-98.0) fL MCH (27.0-32.0) pg MCHC (31.0-37.0) g/dL RDW Std Deviation (28.0-62.0) fl RDW Coeff of Maurizio (11.0-15.0) % Plt Count (150-400) K/uL MPV (7.40-12.00) fL Neut % (Auto) (48.0-80.0) % Lymph % (Auto) (16.0-40.0) % Garrett % (Auto) (0.0-15.0) % Eos % (Auto) (0.0-7.0) % Baso % (Auto) (0.0-1.5) % Neut # (Auto) (1.4-5.7) K/uL Lymph # (Auto) (0.6-2.4) K/uL Garrett # (Auto) (0.0-0.8) K/uL Eos # (Auto) (0.0-0.7) K/uL Baso # (Auto) (0.0-0.1) K/uL Nucleated RBC % /100WBC Nucleated RBCs # K/uL Sodium (136-145) mmol/L Potassium (3.5-5.1) mmol/L Chloride (98-107) mmol/L Carbon Dioxide (21.0-32.0) mmol/L BUN (7.0-18.0) mg/dL Creatinine (0.6-1.0) mg/dL Est Cr Clr Drug Dosing mL/min Estimated GFR (MDRD) ml/min Glucose (74-106) mg/dL Calcium (8.5-10.1) mg/dL Magnesium (1.8-2.4) mg/dL Total Bilirubin (0.2-1.0) mg/dL AST (15-37) IU/L ALT (14-63) IU/L Alkaline Phosphatase (46-116) U/L Total Protein (6.4-8.2) g/dL Albumin (3.4-5.0) g/dL Globulin (2.6-4.0) g/dL Albumin/Globulin Ratio (0.9-1.6) TSH 3rd Generation (0.36-3.74) uIU/mL Urine Color Urine Appearance Urine pH (5.0-8.0) Ur Specific [place] (1.001-1.035) Urine Protein (NEGATIVE) mg/dL Urine Glucose (UA) (NEGATIVE) mg/dL Urine Ketones (NEGATIVE) mg/dL Urine Occult Blood (NEGATIVE) Urine Nitrite (NEGATIVE) Urine Bilirubin (NEGATIVE) Urine Urobilinogen (<2.0) EU/dL Ur Leukocyte Esterase (NEGATIVE) Urine RBC (0-2/HPF) Urine WBC (0-5/HPF) Ur Epithelial Cells (NONE-FEW) Urine Bacteria (NEGATIVE) Urine HCG, Qual NEGATIVE (NEGATIVE) Salicylates (0-20) mg/dL Urine Opiates Screen NEGATIVE (NEGATIVE) Ur Oxycodone Screen NEGATIVE (NEGATIVE) Urine Methadone Screen NEGATIVE (NEGATIVE) Acetaminophen ug/mL Ur Barbiturates Screen NEGATIVE (NEGATIVE) Ur Phencyclidine Scrn NEGATIVE (NEGATIVE) Ur Amphetamine Screen NEGATIVE (NEGATIVE) U Methamphetamines Scrn NEGATIVE (NEGATIVE) U Benzodiazepines Scrn NEGATIVE (NEGATIVE) U Cocaine Metab Screen NEGATIVE (NEGATIVE) U Marijuana (THC) Screen NEGATIVE (NEGATIVE) Ethyl Alcohol mg/dL Result Diagrams: 04/30/19 11:50 04/30/19 11:50 - Problem List (1) Suicidal behavior with attempted self-injury SNOMED Code(s): 122422160, [id number] ICD Code: T14.91XA - SUICIDE ATTEMPT, INITIAL ENCOUNTER Status: Acute (2) Depression SNOMED Code(s): 31469286 ICD Code: F32.9 - MAJOR DEPRESSIVE DISORDER, SINGLE EPISODE, UNSPECIFIED Status: Acute (3) Deliberate self-cutting SNOMED Code(s): 296652774, 962377848 ICD Code: Z72.89 - OTHER PROBLEMS RELATED TO LIFESTYLE Status: Acute Problem List Initiated/Reviewed/Updated: Yes Orders Last 24hrs: Active Orders 24 hr Category Date Time Status Patient Status [ADT] Stat ADT 04/30/19 12:15 Active Cardiac Monitoring [RC] . DIRECTED Care 04/30/19 11:46 Active EKG Documentation Completion [RC] STAT Care 04/30/19 11:46 Active Involuntary Admission/Hold [RC] ASDIRECTED Care 04/30/19 12:03 Active Oxygen Therapy, ED [RC] ASDIRECTED Care 04/30/19 11:46 Active Pulse Oximetry [RC] ASDIRECTED Care 04/30/19 11:46 Active Sodium Chloride 0.9% [Saline Flush] Med 04/30/19 11:46 Active 10 ml FLUSH ASDIRECTED PRN Sodium Chloride 0.9% [Saline Flush] Med 04/30/19 11:46 Active 2.5 ml FLUSH ASDIRECTED PRN Saline Lock Insert [OM.PC] Stat Oth 04/30/19 11:46 Ordered Medication Orders Sodium Chloride (Saline Flush) 10 ml FLUSH ASDIRECTED PRN PRN Reason: Keep Vein Open Last Admin: 04/30/19 11:56 Dose: 10 ml Sodium Chloride (Saline Flush) 2.5 ml FLUSH ASDIRECTED PRN PRN Reason: Keep Vein Open Last Admin: 04/30/19 11:56 Dose: 2.5 ml Assessment/Plan Comment:: This 24 year old female admitted for attempted self harm by ingesting pills. 1. Self harm: Due to amount of Zoloft and Tramadol taken, will monitor overnight in hospital per recommendations of Poison control. Consult Dr Bassett if available. Arrange for acute inpatient psychiatric hospitalization in am. Monitor on telemetry. repeat CMP in am. Ativan for tremors or seizures PRN. - Mortality Measure Prognosis:: Good <Tony Purcell - Last Filed: 05/01/19 17:05> H&P History of Present Illness - General Admit Problem/Dx: Admission Diagnosis/Problem Admission Diagnosis/Problem Suicide attempt I have seen and examined the patient independently of Maritza Burns CNP. I have reviewed and agree with the plan of care as outlined for this patient by her. I have discussed the case with her. Please see orders. Headache Pain Score (Numeric/FACES): 1 Exam - Vital Signs Vital Signs: Last Vital Signs Temp 36.8 C 05/01/19 09:10 Pulse 93 05/01/19 09:10 Resp 16 05/01/19 09:10 BP 124/55 L 05/01/19 09:10 Pulse Ox 97 05/01/19 09:10 - Patient Data Lab Results Last 24 hrs: Laboratory Results - last 24 hr 05/01/19 Range/Units 05:50 Sodium 140 (136-145) mmol/L Potassium 3.5 (3.5-5.1) mmol/L Chloride 106 (98-107) mmol/L Carbon Dioxide 25.6 (21.0-32.0) mmol/L BUN 10 (7.0-18.0) mg/dL Creatinine 0.7 (0.6-1.0) mg/dL Est Cr Clr Drug Dosing 118.01 mL/min Estimated GFR (MDRD) > 60.0 ml/min Glucose 89 (74-106) mg/dL Calcium 8.0 L (8.5-10.1) mg/dL Total Bilirubin 0.8 (0.2-1.0) mg/dL AST 13 L (15-37) IU/L ALT 20 (14-63) IU/L Alkaline Phosphatase 55 (46-116) U/L Total Protein 6.0 L (6.4-8.2) g/dL Albumin 3.0 L (3.4-5.0) g/dL Globulin 3.0 (2.6-4.0) g/dL Albumin/Globulin Ratio 1.0 (0.9-1.6) Result Diagrams: 04/30/19 11:50 05/01/19 05:50 Orders Last 24hrs: Active Orders 24 hr Category Date Time Status Notify Provider Consults [RC] ASDIRECTED Care 04/30/19 19:27 Active Ready for Discharge [RC] PER UNIT ROUTINE Care 05/01/19 09:21 Active
[2019-04-30] MEDS ORDERED: Ondansetron 4 MG/2 ML SDV IVPUSH PRN (13:15)
[2019-04-30] MEDS ORDERED: Acetaminophen 325 MG Tab PO PRN (13:15)
[2019-04-30] MEDS ORDERED: Ibuprofen 400 MG Tab PO PRN (13:15)
[2019-04-30] MEDS ORDERED: LORazepam 2 MG/ML SDV IVPUSH PRN (13:38)
--- NOTE | 2019-04-30 13:55 | PN ---
[facility] Physician - Brief Progress [id number]/10/2019 13:52[facility] [place] - [place] (ARELYN) - MWN RAMONRIGO LOYDSalomeDate of Service 04/30/2019 13:52HPI/Event s of Note Brief eICU Admit [id number] yof presents with suicide attemptZoloft / tramadol OD, vomited mo st of drugs upO/E Seen on cameraVSS, NADDVT Prophylaxis: ambulatoryGI Prophylaxis: n/aIssuesSuicide a ttemptZoloft / Tramadol ODSupportive carePsych evalCase reviewed with bedside teamCall with questions Will followInterventions Intermediate-Communication with other healthcare providers and/or familyElec tronically Signed by: LEE ANN RIBERA) on 04/30/2019 13:54
[2019-05-01 06:59] LABS: BLOOD UREA NITROGEN,BUN 10 mg/dL (7.0-18.0); CARBON DIOXIDE,CO2 25.6 mmol/L (21.0-32.0); CHLORIDE,CL 106 mmol/L (98-107); GLUCOSE RANDOM 89 mg/dL (74-106); POTASSIUM,K 3.5 mmol/L (3.5-5.1); SODIUM,NA 140 mmol/L (136-145)
--- NOTE | 2019-05-01 08:27 | PCM.DCSUM1 ---
<Maritza Burns M - Last Filed: 05/01/19 08:21> Discharge Summary - Hospital Course Brief History: This 24 year old female with pmh of depression presented to the ED with family after she took approximately 13 Tramadol tabs and 20 Zoloft tabs. She did vomit after this, but family is concerned for her mental health. She denies suicidal ideation was her exact intent. She is currently involved in a court case where she is charged with negligent homicide involving a car accident. She reports she took the medication because she is scared and doesn't "want to feel like this anymore". He significant other at the bedside is very scared as he reports she attempted to jump out his moving vehicle last night. Her mother reports she has history of cutting herself as well. Khramakrishnan very limited on amount of history she is giving, but after these incidences were brought up she was forth right with the answers. She reports she started cutting her thighs in high school, this stopped a couple years ago, but she recently started cutting again. She reports she was started on Zoloft by her women's health provider in January, took them for about 1 month and then stopped. She reports they initially helped but then she felt herself getting sluggish and sad again so she stopped taking them. She reports being started on Citalopram in high school, which she took for 2 weeks and saw no improvement so she stopped. She denies alcohol use, no recreational drug use and no tobacco use. In the ED labwork WNL. Urine tox negative. UA negative. ETOH negative. VS Stable. Poison control notified and recommended 8 hours medical clearance on cardiac monitoring. She will be admitted observation in the meantime. Diagnosis: Stroke: No Modified Jt Scale: No Symptoms at All Modified Zuni Scale Score: 0 - Discharge Data Discharge Date: 05/01/19 Discharge Disposition: DC/Tfer to Psych Hosp/Unit 65 Condition: Good - Referral to Home Health Primary Care Physician: PCP None - Discharge Diagnosis/Problem(s) (1) Suicidal behavior with attempted self-injury SNOMED Code(s): 154064481, [id number] ICD Code: T14.91XA - SUICIDE ATTEMPT, INITIAL ENCOUNTER Status: Acute (2) Depression SNOMED Code(s): 61956592 ICD Code: F32.9 - MAJOR DEPRESSIVE DISORDER, SINGLE EPISODE, UNSPECIFIED Status: Acute (3) Deliberate self-cutting SNOMED Code(s): 403227920, [id number] ICD Code: Z72.89 - OTHER PROBLEMS RELATED TO LIFESTYLE Status: Acute - Patient Summary/Data Consults: Consultations 04/30/19 14:00 Consult to Physician [CONS] Routine - Patient Instructions Diet: Regular Diet as Tolerated Activity: As Tolerated Driving: Do Not Drive - Discharge Plan *PRESCRIPTION DRUG MONITORING PROGRAM REVIEWED*: Not Applicable *COPY OF PRESCRIPTION DRUG MONITORING REPORT IN PATIENT [place]: Not Applicable Forms: ED Department Discharge Referrals: PCP,None [Primary Care Provider] - - Discharge Summary/Plan Comment DC Time >30 min.: No Discharge Summary/Plan Comment: Admitting Diganoses: Suicide attempt, ingestion of medications Hx Depression Discharge Diagnoses: Suidical behaviors Mood disorder Jose was admitted to ICU observation and monitored overnight due to the Tramadol and Zoloft she took in suicide attempt. The night previous to this she attempted to jump out of her boyfriend's moving vehicle. She is medically stable. I spoke with Dr Bassett, psychiatry last evening. he was unable to see patient last night, but from history he was given he felt certain she needed to be evaluated at the inpatient level. This morning I spoke with Dr Hoyos, psychiatry in [facility] who has accpeted Jose for transfer. Hold has been placed. Will arrange transfer via EMS. Jose notified of arrangements. - General Info Date of Service: 05/01/19 Admission Dx/Problem (Free Text: Admission Diagnosis/Problem Admission Diagnosis/Problem Suicide attempt Subjective Update: Doing well, lying in bed. No concerns this morning. Feeling anxious about what is going on. Functional Status: Reports: Pain Controlled, Tolerating Diet, Ambulating, Urinating - Review of Systems General: Reports: No Symptoms. Denies: Weakness, Fatigue, Malaise HEENT: Reports: No Symptoms. Denies: Headaches, Sore Throat, Visual Changes Pulmonary: Reports: No Symptoms. Denies: Shortness of Breath Cardiovascular: Reports: No Symptoms. Denies: Chest Pain Gastrointestinal: Reports: No Symptoms. Denies: Abdominal Pain, Nausea, Vomiting Genitourinary: Reports: No Symptoms Musculoskeletal: Reports: No Symptoms Skin: Reports: No Symptoms Neurological: Reports: No Symptoms Psychiatric: Reports: Anxiety - Patient Data Vitals - Most Recent: Last Vital Signs Temp 99.3 F 05/01/19 07:00 Pulse 103 H 05/01/19 07:00 Resp 16 05/01/19 07:00 BP 114/58 L 05/01/19 07:00 Pulse Ox 97 05/01/19 07:00 Weight - Most Recent: 77.2 kg I&O - Last 24 hours: Intake & Output 04/30/19 05/01/19 05/01/19 22:59 06:59 14:59 Intake Total 640 Output Total 470 Balance 170 Lab Results - Last 24 hrs: Laboratory Results - last 24 hr 04/30/19 04/30/19 04/30/19 Range/Units 11:50 11:50 11:51 WBC 10.78 (4.0-11.0) K/uL RBC 4.92 (4.30-5.90) M/uL Hgb 13.6 (12.0-16.0) g/dL Hct 40.6 (36.0-46.0) % MCV 82.5 (80.0-98.0) fL MCH 27.6 (27.0-32.0) pg MCHC 33.5 (31.0-37.0) g/dL RDW Std Deviation 48.2 (28.0-62.0) fl RDW Coeff of Maurizio 16 H (11.0-15.0) % Plt Count 347 (150-400) K/uL MPV 11.70 (7.40-12.00) fL Neut % (Auto) 62.5 (48.0-80.0) % Lymph % (Auto) 27.0 (16.0-40.0) % [place] % (Auto) 9.6 (0.0-15.0) % Eos % (Auto) 0.5 (0.0-7.0) % Baso % (Auto) 0.4 (0.0-1.5) % Neut # (Auto) 6.7 H (1.4-5.7) K/uL Lymph # (Auto) 2.9 H (0.6-2.4) K/uL App[place] # (Auto) 1.0 H (0.0-0.8) K/uL Eos # (Auto) 0.1 (0.0-0.7) K/uL Baso # (Auto) 0.0 (0.0-0.1) K/uL Nucleated RBC % 0.0 /100WBC Nucleated RBCs # 0 K/uL Sodium 142 (136-145) mmol/L Potassium 3.9 (3.5-5.1) mmol/L Chloride 107 (98-107) mmol/L Carbon Dioxide 21.9 (21.0-32.0) mmol/L BUN 13 (7.0-18.0) mg/dL Creatinine 0.8 (0.6-1.0) mg/dL Est Cr Clr Drug Dosing 103.26 mL/min Estimated GFR (MDRD) > 60.0 ml/min Glucose 101 (74-106) mg/dL Calcium 9.6 (8.5-10.1) mg/dL Magnesium 1.8 (1.8-2.4) mg/dL Total Bilirubin 0.7 (0.2-1.0) mg/dL AST 17 (15-37) IU/L ALT 24 (14-63) IU/L Alkaline Phosphatase 70 (46-116) U/L Total Protein 7.5 (6.4-8.2) g/dL Albumin 3.9 (3.4-5.0) g/dL Globulin 3.6 (2.6-4.0) g/dL Albumin/Globulin Ratio 1.1 (0.9-1.6) TSH 3rd Generation 1.10 (0.36-3.74) uIU/mL Urine Color YELLOW Urine Appearance SLT CLOUDY Urine pH 5.5 (5.0-8.0) Ur Specific [place] 1.025 (1.001-1.035) Urine Protein NEGATIVE (NEGATIVE) mg/dL Urine Glucose (UA) NEGATIVE (NEGATIVE) mg/dL Urine Ketones NEGATIVE (NEGATIVE) mg/dL Urine Occult Blood NEGATIVE (NEGATIVE) Urine Nitrite NEGATIVE (NEGATIVE) Urine Bilirubin NEGATIVE (NEGATIVE) Urine Urobilinogen 0.2 (<2.0) EU/dL Ur Leukocyte Esterase NEGATIVE (NEGATIVE) Urine RBC 0-1 (0-2/HPF) Urine WBC 0-2 (0-5/HPF) Ur Epithelial Cells MODERATE (NONE-FEW) Urine Bacteria FEW (NEGATIVE) Urine HCG, Qual (NEGATIVE) Salicylates <0.2 (0-20) mg/dL Urine Opiates Screen (NEGATIVE) Ur Oxycodone Screen (NEGATIVE) Urine Methadone Screen (NEGATIVE) Acetaminophen <2.0 ug/mL Ur Barbiturates Screen (NEGATIVE) Ur Phencyclidine Scrn (NEGATIVE) Ur Amphetamine Screen (NEGATIVE) U Methamphetamines Scrn (NEGATIVE) U Benzodiazepines Scrn (NEGATIVE) U Cocaine Metab Screen (NEGATIVE) U Marijuana (THC) Screen (NEGATIVE) Ethyl Alcohol < 3.0 mg/dL 04/30/19 04/30/19 05/01/19 Range/Units 11:51 11:51 05:50 WBC (4.0-11.0) K/uL RBC (4.30-5.90) M/uL Hgb (12.0-16.0) g/dL Hct (36.0-46.0) % MCV (80.0-98.0) fL MCH (27.0-32.0) pg MCHC (31.0-37.0) g/dL RDW Std Deviation (28.0-62.0) fl RDW Coeff of Maurizio (11.0-15.0) % Plt Count (150-400) K/uL MPV (7.40-12.00) fL Neut % (Auto) (48.0-80.0) % Lymph % (Auto) (16.0-40.0) % [place] % (Auto) (0.0-15.0) % Eos % (Auto) (0.0-7.0) % Baso % (Auto) (0.0-1.5) % Neut # (Auto) (1.4-5.7) K/uL Lymph # (Auto) (0.6-2.4) K/uL [place] # (Auto) (0.0-0.8) K/uL Eos # (Auto) (0.0-0.7) K/uL Baso # (Auto) (0.0-0.1) K/uL Nucleated RBC % /100WBC Nucleated RBCs # K/uL Sodium 140 (136-145) mmol/L Potassium 3.5 (3.5-5.1) mmol/L Chloride 106 (98-107) mmol/L Carbon Dioxide 25.6 (21.0-32.0) mmol/L BUN 10 (7.0-18.0) mg/dL Creatinine 0.7 (0.6-1.0) mg/dL Est Cr Clr Drug Dosing 118.01 mL/min Estimated GFR (MDRD) > 60.0 ml/min Glucose 89 (74-106) mg/dL Calcium 8.0 L (8.5-10.1) mg/dL Magnesium (1.8-2.4) mg/dL Total Bilirubin 0.8 (0.2-1.0) mg/dL AST 13 L (15-37) IU/L ALT 20 (14-63) IU/L Alkaline Phosphatase 55 (46-116) U/L Total Protein 6.0 L (6.4-8.2) g/dL Albumin 3.0 L (3.4-5.0) g/dL Globulin 3.0 (2.6-4.0) g/dL Albumin/Globulin Ratio 1.0 (0.9-1.6) TSH 3rd Generation (0.36-3.74) uIU/mL Urine Color Urine Appearance Urine pH (5.0-8.0) Ur Specific [place] (1.001-1.035) Urine Protein (NEGATIVE) mg/dL Urine Glucose (UA) (NEGATIVE) mg/dL Urine Ketones (NEGATIVE) mg/dL Urine Occult Blood (NEGATIVE) Urine Nitrite (NEGATIVE) Urine Bilirubin (NEGATIVE) Urine Urobilinogen (<2.0) EU/dL Ur Leukocyte Esterase (NEGATIVE) Urine RBC (0-2/HPF) Urine WBC (0-5/HPF) Ur Epithelial Cells (NONE-FEW) Urine Bacteria (NEGATIVE) Urine HCG, Qual NEGATIVE (NEGATIVE) Salicylates (0-20) mg/dL Urine Opiates Screen NEGATIVE (NEGATIVE) Ur Oxycodone Screen NEGATIVE (NEGATIVE) Urine Methadone Screen NEGATIVE (NEGATIVE) Acetaminophen ug/mL Ur Barbiturates Screen NEGATIVE (NEGATIVE) Ur Phencyclidine Scrn NEGATIVE (NEGATIVE) Ur Amphetamine Screen NEGATIVE (NEGATIVE) U Methamphetamines Scrn NEGATIVE (NEGATIVE) U Benzodiazepines Scrn NEGATIVE (NEGATIVE) U Cocaine Metab Screen NEGATIVE (NEGATIVE) U Marijuana (THC) Screen NEGATIVE (NEGATIVE) Ethyl Alcohol mg/dL Med Orders - Current: Current Medications Acetaminophen (Tylenol) 650 mg PO Q4H PRN PRN Reason: Pain (mild 1-3) Last Admin: 04/30/19 18:59 Dose: 650 mg Lorazepam (Ativan) 1 mg IVPUSH Q4H PRN PRN Reason: Seizures Last Admin: 05/01/19 03:09 Dose: 1 mg Ondansetron HCl (Zofran) 4 mg IVPUSH Q4H PRN PRN Reason: Nausea Sodium Chloride (Saline Flush) 10 ml FLUSH ASDIRECTED PRN PRN Reason: Keep Vein Open Last Admin: 04/30/19 11:56 Dose: 10 ml Sodium Chloride (Saline Flush) 2.5 ml FLUSH ASDIRECTED PRN PRN Reason: Keep Vein Open Last Admin: 04/30/19 11:56 Dose: 2.5 ml Discontinued Medications Sodium Chloride (Normal Saline) 1,000 mls @ 999 mls/hr IV .Bolus ONE Stop: 04/30/19 12:46 Last Admin: 04/30/19 11:56 Dose: 999 mls/hr Ibuprofen (Motrin) 400 mg PO Q6H PRN PRN Reason: Pain (mild 1-3) - Exam General: Reports: Alert, Oriented, Cooperative, No Acute Distress Lungs: Reports: Clear to Auscultation, Normal Respiratory Effort Cardiovascular: Reports: Regular Rate, Regular Rhythm GI/Abdominal Exam: Normal Bowel Sounds, Soft, Non-Tender Back Exam: Reports: Normal Inspection, Full Range of Motion Extremities: Normal Inspection, Normal Range of Motion, Non-Tender, No Pedal Edema Wound/Incisions: Reports: Healing Well Neurological: Reports: No New Focal Deficit Psy/Mental Status: Reports: Alert, Normal Affect, Normal Mood <Tony Purcell - Last Filed: 05/01/19 17:05> Discharge Summary - Hospital Course HPI Initial Comments: I have seen and examined the patient independently of Maritza Burns CNP. I have reviewed and agree with the plan of care as outlined for this patient by her. I have discussed the case with her. Please see orders. - Referral to Home Health Primary Care Physician: PCP None - Patient Summary/Data Consults: Consultations 04/30/19 14:00 Consult to Physician [CONS] Routine - Patient Data Vitals - Most Recent: Last Vital Signs Temp 36.8 C 05/01/19 09:10 Pulse 93 05/01/19 09:10 Resp 16 05/01/19 09:10 BP 124/55 L 05/01/19 09:10 Pulse Ox 97 05/01/19 09:10 I&O - Last 24 hours: Intake & Output 05/01/19 05/01/19 05/01/19 06:59 14:59 22:59 Intake Total 500 Output Total 750 Balance -250 Lab Results - Last 24 hrs: Laboratory Results - last 24 hr 05/01/19 Range/Units 05:50 Sodium 140 (136-145) mmol/L Potassium 3.5 (3.5-5.1) mmol/L Chloride 106 (98-107) mmol/L Carbon Dioxide 25.6 (21.0-32.0) mmol/L BUN 10 (7.0-18.0) mg/dL Creatinine 0.7 (0.6-1.0) mg/dL Est Cr Clr Drug Dosing 118.01 mL/min Estimated GFR (MDRD) > 60.0 ml/min Glucose 89 (74-106) mg/dL Calcium 8.0 L (8.5-10.1) mg/dL Total Bilirubin 0.8 (0.2-1.0) mg/dL AST 13 L (15-37) IU/L ALT 20 (14-63) IU/L Alkaline Phosphatase 55 (46-116) U/L Total Protein 6.0 L (6.4-8.2) g/dL Albumin 3.0 L (3.4-5.0) g/dL Globulin 3.0 (2.6-4.0) g/dL Albumin/Globulin Ratio 1.0 (0.9-1.6) Med Orders - Current: Current Medications Discontinued Medications Acetaminophen (Tylenol) 650 mg PO Q4H PRN PRN Reason: Pain (mild 1-3) Last Admin: 04/30/19 18:59 Dose: 650 mg Sodium Chloride (Normal Saline) 1,000 mls @ 999 mls/hr IV .Bolus ONE Stop: 04/30/19 12:46 Last Admin: 04/30/19 11:56 Dose: 999 mls/hr Ibuprofen (Motrin) 400 mg PO Q6H PRN PRN Reason: Pain (mild 1-3) Lorazepam (Ativan) 1 mg IVPUSH Q4H PRN PRN Reason: Seizures Last Admin: 05/01/19 03:09 Dose: 1 mg Ondansetron HCl (Zofran) 4 mg IVPUSH Q4H PRN PRN Reason: Nausea Sodium Chloride (Saline Flush) 10 ml FLUSH ASDIRECTED PRN PRN Reason: Keep Vein Open Last Admin: 04/30/19 11:56 Dose: 10 ml Sodium Chloride (Saline Flush) 2.5 ml FLUSH ASDIRECTED PRN PRN Reason: Keep Vein Open Last Admin: 04/30/19 11:56 Dose: 2.5 ml
== END 2019-05-01 09:40 ==
LOC: MW.ED 11:30 → MW.ICU 12:38
PROVIDERS: ADMIT Internal Medicine; ATTEND Internal Medicine
DX: T14.91XA Suicide attempt, initial encounter (principal); T40.4X2A Poisoning by other synthetic narcotics, intentional self-harm, initial encounter; T43.222A Poisoning by selective serotonin reuptake inhibitors, intentional self-harm, initial encounter; R11.10 Vomiting, unspecified; F32.9 Major depressive disorder, single episode, unspecified; Z72.89 Other problems related to lifestyle; Z88.6 Allergy status to analgesic agent
CPT/HCPCS: 36415; 80053; 80305; 80320; 80329; 81001; 81025; 83735; 84443; 85025; 93005; 96361; 96374; 99284; A9270; G0378; J2060; J7040; 96360; 99285; G0480

== ENCOUNTER 2019-08-10 03:17 | Emergency (ER) | payer MEDICAID, OTHER ==
[2019-08-10] MEDS ORDERED: Albuterol 0.083% 2.5 MG/3 ML Neb Soln NEB ONE (03:36)
[2019-08-10] MEDS ORDERED: Ondansetron 4 MG Tab.DIS PO ONE (04:17)
[2019-08-10] MEDS ORDERED: Acetaminophen 325 MG Tab PO ONE (04:18)
[2019-08-10] MEDS ORDERED: Sodium Chloride 0.9% Inhalation Soln 3 ML Neb INH ONE (05:01)
--- NOTE | 2019-08-10 05:36 | EDM.PDOC ---
ED [facility] GENERAL MEDICAL PROBLEM - General Chief Complaint: Respiratory Problem Stated Complaint: 17WKS AND HAVING CHEST PAIN Time Seen by Provider: 08/10/19 03:45 Source of Information: Reports: Patient History Limitations: Reports: No Limitations - History of Present Illness INITIAL COMMENTS - FREE TEXT/NARRATIVE: Patient 22-year-old female with no past medical history presenting with chief complaint of chest tightness, and body aches. Patient is approximately 17 weeks and has no related complaints. She denies any lower abdominal pain or vaginal bleeding. Patient states the symptoms have been ongoing for the past 2 days. Patient reports having sick contacts with both daughter and being tested for flu and becoming positive. Her symptoms started after their symptoms started. Patient has not been taking any medication for relief. Patient states gradually worsening. Patient denies any chest pain or shortness of breath. Patient has no lower extremity swelling and no recent travels. No history of DVT or PE. In addition to that documented in the HPI above, the additional ROS was obtained : Constitutional: Denies fevers or chills Eyes: Denies vision changes ENMT: Denies sore throat CV: Denies chest pain Resp: Denies SOB GI: Denies vomiting or diarrhea : Denies painful urination MSK: Denies recent trauma Skin: Denies new rashes Neuro: Denies new numbness or tingling or weakness Endocrine: Denies unexpected weight loss Heme: Denies bleeding disorders I have reviewed the triage vital signs Const: Well nourished, well developed, appears stated age Eyes: PERRL, no conjunctival injection HENT: NCAT, Neck supple without meningismus CV: RRR, Warm, well-perfused extremities RESP: CTAB, Unlabored respiratory effort GI: soft, non-tender, non-distended, no masses MSK: No gross deformities appreciated Skin: Warm, dry. 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 Sensation and motor function of extremities grossly intact. Psych: Appropriate mood and affect Chest Pain Score (Numeric/FACES): 7 - Related Data Allergies Allergy/AdvReac Type Severity Reaction Status Date / Time aspirin Allergy Rash Verified 08/10/19 03:28 naproxen [From Aleve] Allergy Rash Verified 08/10/19 03:28 Home Meds: Home Meds Vit No.78/Iron/Fa [Prenatabs FA] 1 each PO DAILY 08/10/19 [History] Past Medical History - Past Health History Medical/Surgical History: Denies Medical/Surgical History HEENT History: Reports: None Cardiovascular History: Reports: None Respiratory History: Reports: None Gastrointestinal History: Reports: None Genitourinary History: Reports: Other (See Below) Other Genitourinary History: 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 History: Reports: Musculoskeletal History: Reports: None Neurological History: Reports: None Psychiatric History: Reports: ADHD, Anxiety, Depression, Suicide Attempt, Suicidal Ideation Endocrine/Metabolic History: Reports: None Hematologic History: Reports: None Immunologic History: Reports: None Oncologic (Cancer) History: Reports: None Dermatologic History: Reports: None - Infectious Disease History Infectious Disease History: Reports: None - Past Surgical History Head Surgeries/Procedures: Reports: None Cardiovascular Surgical History: Reports: None Female Surgical History: Reports: None Social & Family History - Family History Family Medical History: Noncontributory - Tobacco Use Smoking Status *Q: Never Smoker - Caffeine Use Caffeine Use: Reports: Coffee - Recreational Drug Use Recreational Drug Use: Yes Drug Use in Last 12 Months: No Recreational Drug Type: Reports: Marijuana/Hashish Recreational Drug Use Frequency: Not Used In Over 6 Months - Living Situation & Occupation Living situation: Reports: with Family ED ROS GENERAL - Review of Systems Review Of Systems: See Below ED EXAM, GENERAL - Physical Exam Exam: See Below Course - Vital Signs Last Recorded V/S: Last Vital Signs Temp 37.3 C 08/10/19 05:19 Pulse 110 H 08/10/19 05:14 Resp 18 08/10/19 05:14 BP 110/50 L 08/10/19 05:19 Pulse Ox 99 08/10/19 05:14 - Orders/Labs/Meds Meds: Medications Discontinued Medications Generic Name Dose Route Start Last Admin Trade Name Freq PRN Reason Stop Dose Admin Acetaminophen 650 mg 08/10/19 04:18 08/10/19 04:44 Tylenol PO 08/10/19 04:19 650 mg NOW ONE Administration Albuterol 2.5 mg 08/10/19 03:36 08/10/19 03:45 Proventil Neb Soln NEB 08/10/19 03:37 2.5 mg ONETIME ONE Administration Ondansetron HCl 4 mg 08/10/19 04:17 08/10/19 04:44 Zofran Odt PO 08/10/19 04:18 4 mg ONETIME ONE Administration Sodium Chloride 3 ml 08/10/19 05:01 08/10/19 05:07 Sodium Chloride 0.9% INH 08/10/19 05:02 3 ml ONETIME ONE Administration Departure - Departure Time of Disposition: 06:00 Disposition: Home, Self-Care 01 Clinical Impression: Influenza - Discharge Information Instructions: Influenza, Adult Referrals: PCP,None [Primary Care Provider] - Forms: ED Department Discharge Sepsis Event Note - Evaluation Sepsis Screening Result: No Definite Risk - Focused Exam Vital Signs: Vital Signs Temp Pulse Resp BP Pulse Ox 08/10/19 05:19 37.3 C 110/50 L 08/10/19 05:14 110 H 18 110/37 L 99 08/10/19 03:20 36.8 C 94 18 118/64 98 Date Exam was Performed: 08/10/19 Time Exam was Performed: 06:00 - Assessment/Plan Assessment:: Patient [id number] female with a positive respiratory symptoms have improved after administration of saline nebulizer. Patient feels also improved after Tylenol. Does not appear to be any sort of pneumonia in this patient and other considerations are for a pulmonary embolism however the symptoms are more consistent with the influenza picture. Patient's influenza test is positive. Patient symptoms improved after saline nebulizer. Patient observed for period of time due to tachycardia. However, the patient's tachycardia resolved without any intervention. Patient heart rate at time of discharge was 101. Patient feels better and wished to go home. Patient given instructions for Tamiflu and the risks and benefits.
== END 2019-08-10 06:18 | disposition home or self-care (01) ==
LOC: MW.ED 03:17
DX: O99.512 Diseases of the respiratory system complicating pregnancy, second trimester (principal); J11.1 Influenza due to unidentified influenza virus with other respiratory manifestations; Z88.8 Allergy status to other drugs, medicaments and biological substances; Z3A.17 17 weeks gestation of pregnancy
CPT/HCPCS: 87804; 99285; A9270

== ENCOUNTER 2019-08-25 17:35 | Emergency (ER) | payer MEDICAID ==
[2019-08-25] MEDS ORDERED: Sodium Chloride 0.9% 1,000 ML IV ONE (18:23)
--- NOTE | 2019-08-25 18:34 | EDM.PDOC ---
ED HPI GENERAL MEDICAL PROBLEM - General Chief Complaint: TRANSLATOR Problem Stated Complaint: CRAMPING Time Seen by Provider: 08/25/19 18:18 Source of Information: Reports: Patient History Limitations: Reports: No Limitations - History of Present Illness INITIAL COMMENTS - FREE TEXT/NARRATIVE: HISTORY AND PHYSICAL: History of present illness: Patient is a 24-year-old female who presents to the ED today with concern of lower abdominal cramping. Patient states she is 19 weeks and 5 days and follows along with an TRANSLATOR provider in [facility]. Patient states that she was at home sitting in a chair when the dog (boxer breed) jumped up with 2 paws onto her lower abdomen1 hour prior to arrival to the ED. Patient states since then she has had some lower abdominal cramping but denies any vaginal bleeding or discharge. Patient denies any other symptoms or concerns. Patient denies fever, chills, chest pain, shortness of breath, or cough. Denies headache, neck stiff ness, change in vision, syncope, or near syncope. Denies nausea, vomiting, abdominal pain, diarrhea, constipation, or dysuria. Has not noted any blood in urine or stool. Patient has been eating and drinking appropriately. Review of systems: As per history of present illness and below otherwise all systems reviewed and negative. Past medical history: As per history of present illness and as reviewed below otherwise noncontributory. Surgical history: As per history of present illness and as reviewed below otherwise noncontributory. Social history: See social history for further information Family history: As per history of present illness and as reviewed below otherwise noncontributory. Physical exam: General: Patient is alert, oriented, and in no acute distress. Patient sitting comfortably on exam table. HEENT: Atraumatic, normocephalic, pupils equal and reactive bilaterally, negative for conjunctival pallor or scleral icterus, mucous membranes moist, TMs normal bilaterally, throat clear, neck supple, nontender, trachea midline. No drooling or trismus noted. No meningeal signs. No hot potato voice noted. Lungs: Clear to auscultation, breath sounds equal bilaterally, chest nontender. Heart: S1S2, regular rate and rhythm without overt murmur Abdomen: Soft, nondistended, nontender. Negative for masses or hepatosplenomegaly. Negative for costovertebral tenderness. Pelvis: Stable nontender. Genitourinary: Deferred. Rectal: Deferred. Skin: Intact, warm, dry. No lesions or rashes noted. Extremities: Atraumatic, negative for cords or calf pain. Neurovascular unremarkable. Neuro: Awake, alert, oriented. Cranial nerves II through XII unremarkable. Cerebellum unremarkable. Motor and sensory unremarkable throughout. Exam nonfocal. Notes: Dr. Toussaint, OBGYN highway construction inspector for patients without physician, consulted on patient and thoroughly discussed patients case. He does not see a need for an ultrasound at this time and recommends heart tones and close follow up with her OBGYN or to follow up with him in the clinic. Patient left the ED prior to heart tones AMA. Discussed the importance for follow-up with an TRANSLATOR/womens health provider. Voices understanding and is agreeable to plan of care. Denies any further questions or concerns at this time. Diagnostics: heart tones (Patient left the ED AMA prior to heart tones) Therapeutics: NS (patient left the ED without therapeutics AMA) Prescription: None Impression: Lower abdominal pain in , 2nd trimester Against Medical Advice Plan: 1. Patient left the ED AMA prior to discharge or discharge instructions Definitive disposition and diagnosis as appropriate pending reevaluation and review of above. - Related Data Allergies Allergy/AdvReac Type Severity Reaction Status Date / Time aspirin Allergy Rash Verified 08/25/19 17:59 naproxen [From Aleve] Allergy Rash Verified 08/25/19 17:59 Home Meds: Home Meds Vit No.78/Iron/Fa [Prenatabs FA] 1 each PO DAILY 08/10/19 [History] Past Medical History - Past Health History Medical/Surgical History: Denies Medical/Surgical History HEENT History: Reports: None Cardiovascular History: Reports: None Respiratory History: Reports: None Gastrointestinal History: Reports: None Genitourinary History: Reports: Other (See Below) Other Genitourinary History: UTI when she was 17y/o TRANSLATOR History: Reports: Musculoskeletal History: Reports: None Neurological History: Reports: None Psychiatric History: Reports: ADHD, Anxiety, Depression, Suicide Attempt, Suicidal Ideation Endocrine/Metabolic History: Reports: None Hematologic History: Reports: None Immunologic History: Reports: None Oncologic (Cancer) History: Reports: None Dermatologic History: Reports: None - Infectious Disease History Infectious Disease History: Reports: None - Past Surgical History Head Surgeries/Procedures: Reports: None Cardiovascular Surgical History: Reports: None Female Surgical History: Reports: None Social & Family History - Family History Family Medical History: Noncontributory - Tobacco Use Smoking Status *Q: Never Smoker - Caffeine Use Caffeine Use: Reports: Coffee - Recreational Drug Use Recreational Drug Use: No - Living Situation & Occupation Living situation: Reports: with Family ED ROS GENERAL - Review of Systems Review Of Systems: Comprehensive ROS is negative, except as noted in HPI. ED EXAM, GENERAL - Physical Exam Exam: See Below (see dictation) Course - Vital Signs Last Recorded V/S: Last Vital Signs Temp 96.9 F 08/25/19 18:02 Pulse 76 08/25/19 18:02 Resp 18 08/25/19 18:02 BP 117/50 L 08/25/19 18:02 Pulse Ox 99 08/25/19 18:02 - Orders/Labs/Meds Orders: Active Orders 24 hr Category Date Time Status Sodium Chloride 0.9% [Normal Saline] 1,000 ml Med 08/25/19 18:23 Active IV STAT Medication Orders Sodium Chloride (Normal Saline) 1,000 mls @ 999 mls/hr IV STAT ONE Stop: 08/25/19 19:23 Meds: Medications Generic Name Dose Route Start Last Admin Trade Name Len PRN Reason Stop Dose Admin Sodium Chloride 1,000 mls @ 999 mls/hr 08/25/19 18:23 Normal Saline IV 08/25/19 19:23 STAT ONE Departure - Departure Time of Disposition: 18:35 Disposition: Against Medical Advice 07 Clinical Impression: related bilateral lower abdominal pain, antepartum - Discharge Information Referrals: Benita Self MD [Primary Care Provider] - Additional Instructions: Patient left the ED AMA prior to discharge Sepsis Event Note - Evaluation Sepsis Screening Result: No Definite Risk - Focused Exam Vital Signs: Vital Signs Temp Pulse Resp BP Pulse Ox 08/25/19 18:02 96.9 F 76 18 117/50 L 99 Date Exam was Performed: 08/25/19 Time Exam was Performed: 18:28 - My Orders Last 24 Hours: My Active Orders 08/25/19 18:23 Sodium Chloride 0.9% [Normal Saline] 1,000 ml IV STAT - Assessment/Plan Last 24 Hours: My Active Orders 08/25/19 18:23 Sodium Chloride 0.9% [Normal Saline] 1,000 ml IV STAT
== END 2019-08-25 18:37 | disposition left against medical advice (07) ==
LOC: MW.ED 17:35
DX: O26.892 Other specified pregnancy related conditions, second trimester (principal); R10.32 Left lower quadrant pain; R10.31 Right lower quadrant pain; Z3A.19 19 weeks gestation of pregnancy; Z88.6 Allergy status to analgesic agent; W54.1XXA Struck by dog, initial encounter; Y93.89 Activity, other specified
CPT/HCPCS: 99284

== ENCOUNTER 2020-08-16 11:42 | Emergency (ER) | payer MEDICAID ==
[2020-08-16] MEDS ORDERED: Acetaminophen/HYDROcodone 325-5 MG Tab PO ONE (12:15)
[2020-08-16] MEDS ORDERED: Lidocaine 1% with EPINEPHrine 1:100,000 20 ML MDV INJECT ONE (12:29)
[2020-08-16] MEDS ORDERED: Lidocaine 1% with EPINEPHrine 1:100,000 20 ML MDV ONE (12:30)
--- NOTE | 2020-08-16 12:40 | CR ---
Indication: Tripped and fell on mere. Technique: Two views of the right femur Comparison: None. Findings: FindingsSoft tissue deformity is identified laterally. Within the subcutaneous tissues, 2 very faint opacities are identified. The joint spaces are well maintained. Impression: 2 very faint opacities identified within the soft tissues laterally just inferior to the level of the soft tissue deformity. Radiopaque foreign bodies cannot be excluded Dictated by Keli Yang MD @ Aug 16 2020 12:38PM Signed by Dr. Keli Yang @ Aug 16 2020 12:39PM
--- NOTE | 2020-08-16 13:03 | CR ---
INDICATION: Injury with mirror. Evaluate for foreign body. Tripped and fell onto mirror. COMPARISON: 04/22/2019 right hand radiographs. TECHNIQUE: Right hand 3 views, left hand 3 views. FINDINGS: Calcification along the medial aspect of the base of the proximal phalanx of the middle finger likely remote sequelae of trauma. Healed right 5th metacarpal fracture. Otherwise no radiopaque foreign object identified. Joint spaces are maintained. No acute fracture or dislocation. IMPRESSION: Calcification adjacent to the proximal phalanx of the right middle finger, likely due to remote sequelae of trauma. Otherwise no radiopaque foreign object. Dictated by Jeremie Squires MD @ Aug 16 2020 12:57PM Signed by Dr. Jeremie Squires @ Aug 16 2020 1:01PM
--- NOTE | 2020-08-16 13:38 | EDM.PDOC ---
ED HPI GENERAL MEDICAL PROBLEM - General Chief Complaint: Trauma Stated Complaint: LACERATION TO HAND Time Seen by Provider: 08/16/20 11:46 - History of Present Illness INITIAL COMMENTS - FREE TEXT/NARRATIVE: CHIEF COMPLAINT(S): "I tripped and fell and cut myself on some glass." HISTORY OF PRESENT ILLNESS: This is a 24-year-old woman with a past medical history of depression/PTSD who comes to the emergency department with a chief complaint of "I tripped and fell and cut myself on some glass." The patient states that prior to arrival she was stepping over a baby gate and tripped and she grabbed onto a mirror which broke and cut her left hand, right hand, and right thigh. She states that there was some bleeding of her right thigh. She states that she put a bandage around it to stop the bleeding and came into the emergency department. She states that other than getting cut by the glass she did not hit her head or have any loss of consciousness. She states that she is not on any oral anticoagulation. She denies any abdominal pain, nausea or vomiting. She states that she does not have any weakness in her lower extremities or her hands but is having some difficulty moving her right index finger. She states that she has not yet taken any medication and her tetanus is up-to-date. REVIEW OF SYSTEMS: Constitutional: Denies fever, chills. Eyes: Denies eye pain Ears, Nose, Mouth, & Throat: Denies earache Cardiovascular: Denies chest pain Respiratory: Denies shortness of breath Gastrointestinal: Denies Nausea, vomiting, diarrhea, hematochezia. Genitourinary: Denies hematuria MSK: Positive for bilateral hand and right thigh laceration Neurological: Denies blurred vision Psychiatric: Denies depression PAST MEDICAL HISTORY: As per history of present illness and as reviewed below otherwise noncontributory. SURGICAL HISTORY: As per history of present illness and as reviewed below otherwise noncontributory. SOCIAL HISTORY: As per history of present illness and as reviewed below otherwise noncontributory. FAMILY HISTORY: As per history of present illness and as reviewed below otherwise noncontributory. EXAMINATION OF ORGAN SYSTEMS/BODY AREAS: Constitutional: Blood pressure was 128/103, heart rate 75, respiratory rate 16 with an oxygen saturation of 100% on room air. Temperature 36.5 General: Overall well-appearing woman who is in no acute distress. Psychiatric: Appropriate mood and affect. Eyes: No scleral icterus or conjunctival erythema ENMT: Moist mucous membranes. No pharyngeal erythema no blood in the oropharynx. Cardiovascular: Regular, rate, and rhythm. No gallops, murmurs, or rubs. Bilateral upper extremity and lower extremity pulses symmetric and intact. No peripheral edema. No JVD. Respiratory: Lungs clear to auscultation bilaterally. No wheezes, rales, or rho nchi. Gastrointestinal: Soft, non-tender, non-distended. Normoactive bowel sounds Genitourinary: No suprapubic tenderness Musculoskeletal: There is normal flexion extension at the knee with good abdu ction and abduction at the hip. There is also full flexion and extension of the hip. The patient has full range of motion of her left hand and fingers and has some decreased range of motion of the index finger on the right secondary to pain. Otherwise no abnormality Skin: There is an approximately 1 cm laceration to the patient's index finger on the anterior side, 5 cm laceration to the patient's right lateral thigh with fat exposed. No muscle or tendon exposed. There is also a left base of the thumb laceration which measures approximately 3 cm which is shaped like an millimeter without any active bleeding. There are some superficial linear cuts to the patient's lateral thigh on the right. Neurological: Alert, GCS 15 strength and sensation grossly intact in upper and lower extremities bilaterally MEDICAL DECISION MAKING AND COURSE IN THE ED WITH INTERPRETATION/REVIEW OF DIAGNOSTIC STUDIES: This is a 25-year-old woman with a past medical history of depression who comes to the emergency department with right hand, left hand and right thigh laceration status post falling on mirror with right thigh linear abrasions. At this time will obtain x-rays of the right femur and bilateral hands to evaluate for foreign body. At this time I do not believe any labs or other imaging are indicated. The patient's tetanus is up-to-date. Regarding the right side linear abrasions on the lateral side the patient states that she does have a history of depression and PTSD for which she does follow-up with a psychiatrist and is not on her medication due to being a mother and breast-f eeding. She states that today was not a suicide attempt. She denies any current suicidal ideation and no intent to hurt herself or others. The radiological images were viewed by myself along with reading the report from the radiologist. Bilateral hand x-ray does not reveal any radiopaque foreign body, fracture or dislocation. There is a calcification adjacent to the proximal phalanx of the right middle finger likely due to remote sequela of trauma. Right femur x-ray reveals 2 very faint opacities identified within the soft tissues laterally just inferior to the level of the soft tissue deformity. After imaging we did clean the wounds and explored the right lateral thigh wound. There does not appear to be any obvious foreign bodies at this time. Therefore we did discuss laceration repair with the patient. Consent was obtained verbally. Laceration Repair Note Repair of the 5 cm right lateral thigh simple wound was done by myself. Wound was irrigated well with saline. Local anesthesia with lidocaine was performed. No foreign bodies were noted. The wound was repaired with nine 4-0 nylon directed nylon sutures. Wound edges approximated well. Bacitracin ointment and a sterile dressing were applied. Laceration Repair Note Repair of the 1 cm linear right index finger wound was done by myself. Wound was irrigated well with saline. Local anesthesia with lidocaine was performed. No foreign bodies were noted. The wound was repaired with 2 6-0 directed absorbable sutures. Wound edges approximated well. Bacitracin ointment and a sterile dressing were applied. Laceration Repair Note Repair of the 3 cm complex M shaped wound of the left thumb was done by myself. Wound was irrigated well with saline. Local anesthesia with lidocaine was performed. No foreign bodies were noted. The wound was repaired with 7 6-0 directed nylon sutures. Wound edges approximated well. Bacitracin ointment and a sterile dressing were applied. After laceration repair I did discuss with the patient at this time she be stable for discharge. I discussed the importance of using Tylenol and Motrin for pain. I also discussed the use of ice to the affected areas for swelling and pain relief. I discussed that if she were to have any redness, purulent drainage, or fever she should return to the emergency department. She is instructed to return to the emergency department in 5 to 7 days for suture removal. She was amenable to discharge at this time and had no further questions DISPOSITION: The patient was discharged home in stable condition. The patient will follow up with primary care and emergency department CONDITION: Fair PROCEDURES: Laceration repairs FINAL IMPRESSION(S)/DIAGNOSES: 1. Acute mechanical fall 2. Acute left thumb complex laceration status post suture repair 3. Acute right index finger laceration status post suture repair 4. Acute right thigh laceration status post suture repair Cody Thorpe M.D. right leg and hands Pain Score (Numeric/FACES): 2 - Related Data Allergies Allergy/AdvReac Type Severity Reaction Status Date / Time aspirin Allergy Rash Verified 08/16/20 12:00 naproxen [From Aleve] Allergy Rash Verified 08/16/20 12:00 Home Meds: Home Meds Vit No.78/Iron/Fa [Prenatabs FA] 1 each PO DAILY 08/10/19 [History] Acetaminophen [Tylenol Extra Strength] 500 mg PO Q6H #56 tab 08/16/20 [Rx] Ibuprofen 400 mg PO Q6HR #28 tablet 08/16/20 [Rx] Past Medical History - Past Health History Medical/Surgical History: Denies Medical/Surgical History HEENT History: Reports: None Cardiovascular History: Reports: None Respiratory History: Reports: None Gastrointestinal History: Reports: None Genitourinary History: Reports: Other (See Below) Other Genitourinary History: UTI when she was 17y/o 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: Musculoskeletal History: Reports: None Neurological History: Reports: None Psychiatric History: Reports: ADHD, Anxiety, Depression, Suicide Attempt, Suicidal Ideation Endocrine/Metabolic History: Reports: None Hematologic History: Reports: None Immunologic History: Reports: None Oncologic (Cancer) History: Reports: None Dermatologic History: Reports: None - Infectious Disease History Infectious Disease History: Reports: None - Past Surgical History Head Surgeries/Procedures: Reports: None Cardiovascular Surgical History: Reports: None Female Surgical History: Reports: None Social & Family History - Family History Family Medical History: No Pertinent Family History - Caffeine Use Caffeine Use: Reports: None - Recreational Drug Use Recreational Drug Use: No - Living Situation & Occupation Living situation: Reports: with Family Review of Systems - Review of Systems Review Of Systems: See Below ED EXAM, GENERAL - Physical Exam Exam: See Below Course - Vital Signs Last Recorded V/S: Last Vital Signs Temp 36.5 C 08/16/20 12:22 Pulse 72 08/16/20 13:37 Resp 18 08/16/20 13:37 BP 100/49 L 08/16/20 13:37 Pulse Ox 99 08/16/20 13:37 - Orders/Labs/Meds Meds: Medications Discontinued Medications Generic Name Dose Route Start Last Admin Trade Name Len PRN Reason Stop Dose Admin Hydrocodone Bitart/Acetaminophen 1 tab 08/16/20 12:15 08/16/20 12:21 [place] 325-5 Mg PO 08/16/20 12:16 1 tab ONETIME ONE Administration Bacitracin 28 gm 08/16/20 14:00 08/16/20 13:36 Bacitracin Oint TOP 28 g TID IVANIA Administration Lidocaine/Epinephrine 20 ml 08/16/20 12:29 08/16/20 12:33 Xylocaine 1% With Epinephrine 1:100,000 INJECT 08/16/20 12:30 20 ml ONETIME ONE Administration Lidocaine/Epinephrine Confirm 08/16/20 12:30 08/16/20 12:33 Xylocaine 1% With Epinephrine 1:100,000 Administered 08/16/20 12:31 Not Given Dose 20 ml .ROUTE .STK-MED ONE Departure - Departure Time of Disposition: 13:35 Disposition: Home, Self-Care 01 Condition: Fair Clinical Impression: Laceration of leg Qualifiers: Encounter type: initial encounter Laterality: right Qualified Code(s): S81.811A - Laceration without foreign body, right lower leg, initial encounter Laceration of hand Qualifiers: Encounter type: initial encounter Foreign body presence: without foreign body Laterality: left Qualified Code(s): S61.412A - Laceration without foreign body of left hand, initial encounter Laceration of finger Qualifiers: Encounter type: initial encounter Finger: index finger Damage to nail status: without damage Foreign body presence: without foreign body Laterality: right Qualified Code(s): S61.210A - Laceration without foreign body of right index finger without damage to nail, initial encounter - Discharge Information *PRESCRIPTION DRUG MONITORING PROGRAM REVIEWED*: No *COPY OF PRESCRIPTION DRUG MONITORING REPORT IN PATIENT [place]: No Prescriptions: Ibuprofen 400 mg PO Q6HR #28 tablet Acetaminophen [Tylenol Extra Strength] 500 mg PO Q6H #56 tab Instructions: Laceration Care, Adult, [id number], Pain Medicine Instructions, [id number], Sutures, [place], or Adhesive Wound Closure, [id number] Referrals: PCP,None [Primary Care Provider] - Forms: ED Department Discharge Additional Instructions: You were evaluated today on an emergent basis. We did place stitches in your left hand, right hand, and right thigh. Please use Tylenol 1000 mg every 6 hours for pain and Motrin 400 mg every 6 hours for pain. Use ice to the affected areas 20 minutes four times a day. If you are to develop any redness, pus drainage, or fever please return to the emergency department. Please return to the emergency department in 5 to 7 days for suture removal. [facility] [address] [place] [id number] [facility] [address] [place] [id number] The patient is informed of any results of their evaluation and diagnostic workup and all questions are answered. They are given discharge instructions and return precautions. The patient is stable for discharge. The patient states they understand and agree with the plan and that they will return if their symptoms get worse or if they have any new concerns. The following information is given to patients seen in the emergency department who are being discharged to home. This information is to outline your options for follow-up care. We provide all patients seen in our emergency department with a follow-up referral. The need for follow-up, as well as the timing and circumstances, are variable depending upon the specifics of your emergency department visit. If you don't have a primary care physician on staff, we will provide you with a referral. We always advise you to contact your personal physician following an emergency department visit to inform them of the circumstance of the visit and for follow-up with them and/or the need for any referrals to a consulting specialist. The emergency department will also refer you to a specialist when appropriate. This referral assures that you have the opportunity for follow-up care with a specialist. All of these measure are taken in an effort to provide you with o ptimal care, which includes your follow-up. Under all circumstances we always encourage you to contact your private physician who remains a resource for coordinating your care. When calling for follow-up care, please make the office aware that this follow-up is from your recent emergency room visit. If for any reason you are refused follow-up, please contact the [facility] Emergency Department at and asked to speak to the emergency department charge nurse. . Sepsis Event Note (ED) - Evaluation Sepsis Screening Result: No Definite Risk - Focused Exam Vital Signs: Vital Signs Temp Pulse Resp BP Pulse Ox 08/16/20 13:37 72 18 100/49 L 99 08/16/20 12:50 75 16 110/62 98 08/16/20 12:22 36.5 C 70 16 102/57 L 98 08/16/20 11:52 36.4 C 65 16 119/51 L 99 08/16/20 11:42 36.5 C 75 16 128/103 H 100
[2020-08-16] MEDS ORDERED: Bacitracin Oint 28.35 GM Tube TOP SCH (14:00)
== END 2020-08-16 13:44 | disposition home or self-care (01) ==
LOC: MW.ED 11:42
DX: S61.012A Laceration without foreign body of left thumb without damage to nail, initial encounter (principal); S61.210A Laceration without foreign body of right index finger without damage to nail, initial encounter; S71.111A Laceration without foreign body, right thigh, initial encounter; Z88.6 Allergy status to analgesic agent; W25.XXXA Contact with sharp glass, initial encounter
CPT/HCPCS: 12004; 73130; 73552; 99283; A9270

== ENCOUNTER 2020-08-18 19:41 | Emergency (ER) | payer MEDICAID ==
--- NOTE | 2020-08-18 20:39 | EDM.PDOC ---
ED HPI GENERAL MEDICAL PROBLEM - General Chief Complaint: Upper Extremity Injury/Pain Stated Complaint: INJURED RIGHT POINTER FINGER Time Seen by Provider: 08/18/20 20:23 - History of Present Illness INITIAL COMMENTS - FREE TEXT/NARRATIVE: CHIEF COMPLAINT(S): Unable to move right index finger HISTORY OF PRESENT ILLNESS: This is a 24-year-old woman with a recent visit to the emergency department after multiple lacerations status post suture repair who was seen by me who comes to the emergency department with a chief complaint of unable to move right index finger. The patient states that she is not experiencing any pain and she does have some sensation in her right index finger. 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 The patient is left-hand dominant. She denies any redness, swelling, numbness. She states that the laceration is healing well. She states that she did visit her primary care physician yesterday who also evaluated the finger and thought it was just due to healing. She denies any other symptoms and states that her other lacerations are healing well. REVIEW OF SYSTEMS: Constitutional: Denies fever, chills. Eyes: Denies eye pain Ears, Nose, Mouth, & Throat: Denies earache Cardiovascular: Denies chest pain Respiratory: Denies shortness of breath Gastrointestinal: Denies Nausea, vomiting, diarrhea, hematochezia. Genitourinary: Denies hematuria MSK: Positive for right index finger decreased flexion Neurological: Denies blurred vision numbness, tingling Psychiatric: Denies depression PAST MEDICAL HISTORY: As per history of present illness and as reviewed below otherwise noncontributory. SURGICAL HISTORY: As per history of present illness and as reviewed below otherwise noncontributory. SOCIAL HISTORY: As per history of present illness and as reviewed below otherwise noncontributory. FAMILY HISTORY: As per history of present illness and as reviewed below otherwise noncontributory. EXAMINATION OF ORGAN SYSTEMS/BODY AREAS: Constitutional: Blood pressure is 118/69, heart rate 80, respiratory rate 18 with an oxygen saturation 97% on room air. Temperature 36.6 General: Overall well-appearing woman who is in no acute distress Psychiatric: Appropriate mood and affect. Eyes: No scleral icterus or conjunctival erythema ENMT: Moist mucous membranes. No pharyngeal erythema Cardiovascular: Regular, rate, and rhythm. No gallops, murmurs, or rubs. Bilateral upper extremity pulses symmetric and intact. Distal capillary refill in all digits is less than 2 seconds including the right index finger. Respiratory: Lungs clear to auscultation bilaterally. No wheezes, rales, or rhonchi. Gastrointestinal: Soft, non-tender, non-distended. Normoactive bowel sounds Genitourinary: No suprapubic tenderness Musculoskeletal: With the right index finger there is a well-healing laceration with 2 absorbable stitches at the PIP. The patient is able to flex and extend the right digit at the MCP. She can also extend at the PIP and DIP, there is moderate amounts of decreased flexion at the PIP and DIP. Distal sensation is intact. Skin: There are lacerations status post suture repair of her left thumb, right index, and right thigh all which appear to be healing well. Neurological: Alert, GCS 15 distal sensation of the fingers are intact bilaterally. MEDICAL DECISION MAKING AND COURSE IN THE ED WITH INTERPRETATION/REVIEW OF ANNEMARIE GNOSTIC STUDIES: This is a 25-year-old woman with a recent laceration repair by myself who comes to the emergency department with decreased ability to flex her right index finger at the PIP and DIP. I did attempt to do a bedside ultrasound to evaluate for flexor tendon rupture or tear. On my examination it was difficult to visualize the flexor tendon. Therefore I contacted Dr. [facility] orthopedics here to see if the patient could be evaluated by orthopedics here in [place]. He recommended follow-up with a hand surgeon. He states that this is not emergent. I contacted [facility] in [place] and spoke with Dr. Thorne who stated that he could see her tomorrow in his clinic at 9 AM. He recommended that the patient be n.p.o. just in case she needed surgery. I discussed this with the patient and she was amenable to this plan. She is to remain n.p.o. after midnight. I did provide the patient with the address and phone number for the clinic. We did place the right index finger in a splint with flexion. DISPOSITION: The patient was discharged home in stable condition. The patient will follow up with Dr. Thorne tomorrow CONDITION: Fair PROCEDURES: None FINAL IMPRESSION(S)/DIAGNOSES: 1. Acute possible flexor tendon tear of right index finger Cody Thorpe M.D. - Related Data Allergies Allergy/AdvReac Type Severity Reaction Status Date / Time aspirin Allergy Rash Verified 08/18/20 19:55 naproxen [From Aleve] Allergy Rash Verified 08/18/20 19:55 Home Meds: Home Meds . 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: Musculoskeletal History: Reports: None Neurological History: Reports: None Psychiatric History: Reports: ADHD, Anxiety, Depression, Suicide Attempt, Suicidal Ideation Endocrine/Metabolic History: Reports: None Insulin Pump 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 Hematologic History: Reports: None Immunologic History: Reports: None Oncologic (Cancer) History: Reports: None Dermatologic History: Reports: None - Infectious Disease History Infectious Disease History: Reports: None - Past Surgical History Head Surgeries/Procedures: Reports: None Cardiovascular Surgical History: Reports: None Female Surgical History: Reports: None Social & Family History - Family History Family Medical History: No Pertinent Family History - Tobacco Use Tobacco Use Status *Q: Never Tobacco User - Caffeine Use Caffeine Use: Reports: Energy Drinks - Recreational Drug Use Recreational Drug Use: No - Living Situation & Occupation Living situation: Reports: with Family Review of Systems - Review of Systems Review Of Systems: See Below ED EXAM, GENERAL - Physical Exam Exam: See Below Course - Vital Signs Last Recorded V/S: Last Vital Signs Temp 36.8 C 08/18/20 21:02 Pulse 74 08/18/20 21:02 Resp 18 08/18/20 21:02 BP 117/66 08/18/20 21:02 Pulse Ox 100 08/18/20 21:02 - Orders/Labs/Meds Orders: Active Orders 24 hr Category Date Time Status DME for Discharge [COMM] Stat Oth 08/18/20 21:13 Ordered Departure - Departure Time of Disposition: 20:47 Disposition: Home, Self-Care 01 Condition: Fair Clinical Impression: Laceration of flexor tendon of hand Qualifiers: Encounter type: initial encounter Laterality: right Qualified Code(s): S66.821A - Laceration of other specified muscles, fascia and tendons at wrist and hand level, right hand, initial encounter - Discharge Information *PRESCRIPTION DRUG MONITORING PROGRAM REVIEWED*: No *COPY OF PRESCRIPTION DRUG MONITORING REPORT IN PATIENT [place]: No Instructions: Tendon Repair Referrals: Frida Alex NP [Primary Care Provider] - Forms: ED Department Discharge Additional Instructions: You were evaluated today on an emergent basis. At this time I do believe you are experiencing a possible tendon injury to your right finger. We will place a splint to your right finger. You should follow-up with Dr. Thorne tomorrow at 9 AM in [place]. Please do not eat or drink anything after midnight. Please return to the emergency department for any new or worsening symptoms. Dr. Thorne [facility] [address] [phone] The patient is informed of any results of their evaluation and diagnostic workup and all questions are answered. They are given discharge instructions and return precautions. The patient is stable for discharge. The patient states they understand and agree with the plan and that they will return if their symptoms get worse or if they have any new concerns. The following information is given to patients seen in the emergency department who are being discharged to home. This information is to outline your options for follow-up care. We provide all patients seen in our emergency department with a follow-up referral. The need for follow-up, as well as the timing and circumstances, are variable depending upon the specifics of your emergency department visit. If you don't have a primary care physician on staff, we will provide you with a referral. We always advise you to contact your personal physician following an emergency department visit to inform them of the circumstance of the visit and for follow-up with them and/or the need for any referrals to a consulting specialist. The emergency department will also refer you to a specialist when appropriate. This referral assures that you have the opportunity for follow-up care with a specialist. All of these measure are taken in an effort to provide you with optimal care, which includes your follow-up. Under all circumstances we always encourage you to contact your private physician who remains a resource for coordinating your care. When calling for follow-up care, please make the office aware that this follow-up is from your recent emergency room visit. If for any reason you are refused follow-up, please contact the [facility] Emergency Department at and asked to speak to the emergency department charge nurse. Sepsis Event Note (ED) - Evaluation Sepsis Screening Result: No Definite Risk - Focused Exam Vital Signs: Vital Signs Temp Pulse Resp BP Pulse Ox 08/18/20 21:02 36.8 C 74 18 117/66 100 08/18/20 19:50 36.6 C 80 18 118/69 97 - My Orders Last 24 Hours: My Active Orders 08/18/20 21:13 DME for Discharge [COMM] Stat - Assessment/Plan Last 24 Hours: My Active Orders 08/18/20 21:13 DME for Discharge [COMM] Stat
--- NOTE | 2020-08-20 12:58 | PCM.SN.2 ---
- Free Text/Narrative Note: I contacted patient for follow up. The patient stated that she was able to see Dr. Thorne in [place], [place]. She stated that she underwent surgery and is feeling well. She stated that she is having some pain but other than that she is able to move her finger and the pain is controlled well with the medications provided to her. She stated that she has a follow up in 20 days. She was given strict return precautions and encouraged to continued with the pain medication as needed.
== END 2020-08-18 21:03 | disposition home or self-care (01) ==
LOC: MW.ED 19:41
DX: S66.120A Laceration of flexor muscle, fascia and tendon of right index finger at wrist and hand level, initial encounter (principal); Z88.6 Allergy status to analgesic agent; X58.XXXA Exposure to other specified factors, initial encounter
CPT/HCPCS: 99282; 99283

== ENCOUNTER 2020-08-26 16:49 | Emergency (ER) | payer MEDICAID ==
--- NOTE | 2020-08-26 17:07 | EDM.PDOC ---
ED HPI GENERAL MEDICAL PROBLEM - General Chief Complaint: Wound Recheck Stated Complaint: CUT REOPENING Time Seen by Provider: 08/26/20 17:04 Source of Information: Reports: Patient History Limitations: Reports: No Limitations - History of Present Illness INITIAL COMMENTS - FREE TEXT/NARRATIVE: HISTORY AND PHYSICAL: History of present illness: Patient is a 25-year-old female who presents to the emergency room with concerns of wound dehiscence after removing her sutures. Patient was seen in our emergency room on 08/16/2024 multiple lacerations from a mere breaking. At that time she did have laceration repair on her left hand, right hand and right thigh. She has followed up with a hand surgeon regarding her right hand injury and does have close follow-up with them. Today while at home she was removing the stitches from her right thigh per herself and had noticed that the skin appeared to be . She would like this evaluated before she continued removing the sutures at home. She denies any redness, swelling, drainage from the site. She states everything appears to be healing well and has no other concerns. Patient denies any fever, chills, headache, change in vision, syncope or near syncope. Denies any chest pain, back pain, shortness of breath or cough. Denies any abdominal pain, nausea, vomiting, diarrhea, constipation or dysuria. Has not noted any blood in urine or stool. Patient has been eating and drinking appropriately. Review of systems: As per history of present illness and below otherwise all systems reviewed and negative. Past medical history: As per history of present illness and as reviewed below otherwise noncontributory. Surgical history: As per history of present illness and as reviewed below otherwise noncontributor y. Social history: See social history for further information Family history: As per history of present illness and as reviewed below otherwise noncontributory. Physical exam: General: Well developed and well nourished 25-year-old female. Alert and orientated x 3. Nontoxic in appearance and in no acute distress. Vital signs are stable and have been reviewed by me. Nursing notes were reviewed. HEENT: Atraumatic, normocephalic, pupils equal and reactive bilaterally, negative for conjunctival pallor or scleral icterus, mucous membranes moist, trachea midline. No drooling or trismus noted. No meningeal signs. No hot potato voice noted. Lungs: Clear to auscultation, breath sounds equal bilaterally. Normal work of breathing, no accessory muscles used. Heart: S1S2, regular rate and rhythm without overt murmur Abdomen: Soft, nondistended, nontender. Skin: Fili wrap dressing to the right hand (not removed/recent surgery in [place]). Approximately an 8 cm laceration across the right mid anterior thigh that has half of the stitches removed, skin is well approximated appears to have no dehiscence. The remaining laceration continues to have stitches intact. Healing scar noted to the ulnar surface of the left lateral palm, no erythema. Remaining skin is intact, warm, dry. No lesions or rashes noted. Hematologic: No petechiae or purpra. Mucosa appropriate color and normal nail bed color and refill. Extremities: Moves all extremities per self without difficulty or deficits. Neurovascular unremarkable. Neuro: Awake, alert, oriented. Cranial nerves II through XII unremarkable. Cere bellum unremarkable. Motor and sensory unremarkable throughout. Exam nonfocal. Psychiatric: Mood and affect are appropriate. Normal thought process. Answering questions appropriately. Notes: Patient requests that the bandage on her right upper extremity not be removed as she recently had surgery in my not. She states she has not concerned with the healing of that as she does have follow-up with her surgeon. The laceration appears to be healing well on the right thigh and it is 10 days past the sutures being placed. The remaining stitches have been removed by nursing staff and Steri-Strips have been applied for patient comfort as she is concerned that it will open. No concern for infection, skin is pink and nonfluctuant. I have talked with the patient about today's findings, in addition to providing specific details for plan of care. Reassessment at the time of disposition demonstrates that the patient is in no acute distress. The patient is stable for discharge, counseling was provided and we discussed in great detail signs and symptoms that would prompt them to return to the Emergency Department. Medication, follow up and supportive care measures were reviewed and discussed. Voices understanding and is agreeable to plan of care. Denies any further questions or concerns at this time. Diagnostics: None Therapeutics: Suture removal, Steri-Strips Prescription: None Impression: Suture recheck Plan: 1. Keep the area clean and dry. Continue to monitor for signs of infection. Follow up with your hand surgeon regarding your right hand surgery. 2. Tylenol and/or ibuprofen as needed for pain management. 3. Please follow-up with your primary care provider in the next 1-2 days. Return to the ED as needed and as discussed. Definitive disposition and diagnosis as appropriate pending reevaluation and review of above. - Related Data Allergies Allergy/AdvReac Type Severity Reaction Status Date / Time aspirin Allergy Rash Verified 08/26/20 17:04 naproxen [From Aleve] Allergy Rash Verified 08/26/20 17:04 Home Meds: Home Meds . 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: Musculoskeletal History: Reports: None Neurological History: Reports: None Psychiatric History: Reports: ADHD, Anxiety, Depression, Suicide Attempt, Suicidal Ideation Endocrine/Metabolic History: Reports: None 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 Hematologic History: Reports: None Immunologic History: Reports: None Oncologic (Cancer) History: Reports: None Dermatologic History: Reports: None - Infectious Disease History Infectious Disease History: Reports: None - Past Surgical History Head Surgeries/Procedures: Reports: None Cardiovascular Surgical History: Reports: None Female Surgical History: Reports: None Social & Family History - Family History Family Medical History: No Pertinent Family History - Caffeine Use Caffeine Use: Reports: Energy Drinks - Living Situation & Occupation Living situation: Reports: with Family ED ROS GENERAL - Review of Systems Review Of Systems: Comprehensive ROS is negative, except as noted in HPI. ED EXAM, SKIN/RASH Exam: See Below (See dictation) Course - Vital Signs Last Recorded V/S: Last Vital Signs Temp 97 F 08/26/20 17:00 Pulse 99 08/26/20 17:00 Resp 16 08/26/20 17:00 BP 123/71 08/26/20 17:00 Pulse Ox 95 08/26/20 17:00 Departure - Departure Time of Disposition: 17:13 Disposition: Home, Self-Care 01 Clinical Impression: Suture check - Discharge Information Instructions: Wound Check Referrals: Frida Alex NP [Primary Care Provider] - Forms: ED Department Discharge Additional Instructions: The following information is given to patients seen in the emergency department who are being discharged to home. This information is to outline your options for follow-up care. We provide all patients seen in our emergency department with a follow-up referral. The need for follow-up, as well as the timing and circumstances, are variable depending upon the specifics of your emergency department visit. If you don't have a primary care physician on staff, we will provide you with a referral. We always advise you to contact your personal physician following an emergency department visit to inform them of the circumstance of the visit and for follow-up with them and/or the need for any referrals to a consulting specialist. The emergency department will also refer you to a specialist when appropriate. This referral assures that you have the opportunity for follow-up care with a specialist. All of these measure are taken in an effort to provide you with optimal care, which includes your follow-up. Under all circumstances we always encourage you to contact your private physician who remains a resource for coordinating your care. When calling for follow-up care, please make the office aware that this follow-up is from your recent emergency room visit. If for any reason you are refused follow-up, please contact the [facility] Emergency Department at and asked to speak to the emergency department charge nurse. [facility] [address] [place] [address] [place] [address] Thank you for choosing the [facility] emergency department in [place] for your medical needs today. It was a pleasure caring for you. Today you were seen in the emergency department for suture recheck. 1. Keep the area clean and dry. Continue to monitor for signs of infection. Follow up with your hand surgeon regarding/care of your recent right hand surgery. 2. Tylenol and/or ibuprofen as needed for pain management. 3. Please follow-up with your primary care provider in the next 1-2 days. Return to the ED as needed and as discussed. Sepsis Event Note (ED) - Evaluation Sepsis Screening Result: No Definite Risk - Focused Exam Vital Signs: Vital Signs Temp Pulse Resp BP Pulse Ox 08/26/20 17:00 97 F 99 16 123/71 95
== END 2020-08-26 17:16 | disposition home or self-care (01) ==
LOC: MW.ED 16:49
DX: S71.111D Laceration without foreign body, right thigh, subsequent encounter (principal); Z88.6 Allergy status to analgesic agent
CPT/HCPCS: 99282

== ENCOUNTER 2020-10-11 16:13 | Emergency (ER) | payer MEDICAID ==
[2020-10-11] MEDS ORDERED: Sodium Chloride 0.9% 2.5 ML Syringe FLUSH PRN (16:47)
[2020-10-11] MEDS ORDERED: Sodium Chloride 0.9% 10 ML Syringe FLUSH PRN (16:47)
--- NOTE | 2020-10-11 16:52 | EDM.PDOC ---
<Arley Lemus - Last Filed: 10/11/20 18:50> ED HPI GENERAL MEDICAL PROBLEM - General Chief Complaint: Behavioral/Psych Stated Complaint: MENTAL HEALTH Time Seen by Provider: 10/11/20 16:16 Source of Information: Reports: Patient History Limitations: Reports: No Limitations - History of Present Illness INITIAL COMMENTS - FREE TEXT/NARRATIVE: 25-year-old female past medical history depression, ADHD on venlafaxine and Strattera presents for suicide attempt. Patient states that she had thoughts of killing herself so she took her dog leash, wrapped around her neck, and attempted to hang herself in her closet. Immediately after letting her weight down she dislodged herself from the dog leash and called her mother for help. She denies any shortness of breath, neck pain, one-sided weakness. She notes history of prior psychiatric hospitalization for suicidal ideation. She denies any drug or alcohol use. - Related Data Allergies Allergy/AdvReac Type Severity Reaction Status Date / Time aspirin Allergy Rash Verified 10/11/20 16:54 naproxen [From Aleve] Allergy Rash Verified 10/11/20 16:54 Home Meds: Home Meds Venlafaxine HCl 10/11/20 [History] atoMOXetine [Strattera] 10/11/20 [History] Past Medical History - Past Health History Medical/Surgical History: Denies Medical/Surgical History HEENT History: Reports: None Cardiovascular History: Reports: None Respiratory History: Reports: None Gastrointestinal History: Reports: None Genitourinary History: Reports: Other (See Below) Other Genitourinary History: UTI when she was 17y/o 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[employer] History: Reports: Musculoskeletal History: Reports: None Neurological History: Reports: None Psychiatric History: Reports: ADHD, Anxiety, Depression, Suicide Attempt, Suicidal Ideation Endocrine/Metabolic History: Reports: None Insulin Pump Model and Certified Coding Specialist: None Hematologic History: Reports: None Immunologic History: Reports: None Oncologic (Cancer) History: Reports: None Dermatologic History: Reports: None - Infectious Disease History Infectious Disease History: Reports: None - Past Surgical History Head Surgeries/Procedures: Reports: None Cardiovascular Surgical History: Reports: None Female Surgical History: Reports: None Social & Family History - Family History Family Medical History: No Pertinent Family History - Caffeine Use Caffeine Use: Reports: None - Living Situation & Occupation Living situation: Reports: with Family ED ROS GENERAL - Review of Systems Review Of Systems: Comprehensive ROS is negative, except as noted in HPI. ED EXAM, GENERAL - Physical Exam Exam: See Below Exam Limited By: No Limitations General Appearance: Alert, WD/WN, No Apparent Distress Eye Exam: Bilateral Eye: PERRL Ears: Normal External Exam Throat/Mouth: Normal Oropharynx, Normal Voice, No Airway Compromise Head: Atraumatic, Normocephalic Neck: Supple, Non-Tender, Full Range of Motion, Other (Petechial rash around neck, no palpable crepitus) Respiratory/Chest: No Respiratory Distress, Lungs Clear, Normal Breath Sounds, No Accessory Muscle Use, Other (No palpable crepitus) Cardiovascular: Normal Peripheral Pulses, Regular Rate, Rhythm Extremities: Normal Inspection Neurological: Alert, Normal Gait Psychiatric: Normal Affect, Depressed Mood Skin Exam: Warm, Dry, Intact, Normal Color Course - Re-Assessments/Exams Free Text/Narrative Re-Assessment/Exam: 10/11/20 17:15 We will get medical clearance labs for psychiatric admit. Considering mechanism of suicide attempt and petechial rash on physical exam we will get CT brain, C- spine, CTA head and neck, chest x-ray. 10/11/20 18:20 Labs unremarkable. We will follow-up CT imaging, x-ray and transfer for psych. 10/11/20 18:50 Patient care transitioned to [address] reads Departure - Departure Disposition: DC/Tfer to Psych Hosp/Unit 65 Clinical Impression: Suicidal ideation MDD (major depressive disorder) Qualifiers: Major depression recurrence: recurrent Active/Remission status: currently active Major depression episode severity: severe Psychotic features: without psychotic features Qualified Code(s): F33.2 - Major depressive disorder, recurrent severe without psychotic features Suicide attempt by hanging Qualifiers: Encounter type: initial encounter Qualified Code(s): T71.162A - Asphyxiation due to hanging, intentional self-harm, initial encounter - Discharge Information Referrals: Frida Alex NP [Primary Care Provider] - Forms: ED Department Discharge <Kevon Armstrong - Last Filed: 10/11/20 20:13> ED HPI GENERAL MEDICAL PROBLEM - History of Present Illness INITIAL COMMENTS - FREE TEXT/NARRATIVE: 8:10 PM: Signout received by me. Is a 25-year-old female with depression and suicidal ideation with attempt by hanging. Patient had a CT scan of her head and neck as well as CTA of her neck which revealed no significant pathology or abnormality. I have discussed the case with Dr. Hill at [facility] who has agreed to assist us with inpatient level care for the patient. Patient is clinically and hemodynamically stable at this time. Patient is cooperative. I have discussed the plan with the patient and she is currently in agreement with the plan to be transferred to [facility] for evaluation by psychiatry for her MDD and suicide ideation/attempt. Course - Vital Signs Last Recorded V/S: Last Vital Signs Temp 98.5 F 10/11/20 19:44 Pulse 112 H 10/11/20 19:44 Resp 15 10/11/20 19:44 BP 128/84 10/11/20 19:44 Pulse Ox 97 10/11/20 19:44 - Orders/Labs/Meds Orders: Active Orders 24 hr Category Date Time Status EKG Documentation Completion [RC] STAT Care 10/11/20 16:47 Active Sodium Chloride 0.9% [Saline Flush] Med 10/11/20 16:47 Active 10 ml FLUSH ASDIRECTED PRN Sodium Chloride 0.9% [Saline Flush] Med 10/11/20 16:47 Active 2.5 ml FLUSH ASDIRECTED PRN Saline Lock Insert [OM.PC] Stat Oth 10/11/20 16:48 Ordered Medication Orders Sodium Chloride (Saline Flush) 10 ml FLUSH ASDIRECTED PRN PRN Reason: Keep Vein Open Last Admin: 10/11/20 17:51 Dose: 10 ml Documented by: JERRY Sodium Chloride (Saline Flush) 2.5 ml FLUSH ASDIRECTED PRN PRN Reason: Keep Vein Open Last Admin: 10/11/20 17:51 Dose: 2.5 ml Documented by: JERRY Labs: Laboratory Tests 10/11/20 10/11/20 10/11/20 Range/Units 17:17 17:17 17:17 WBC 7.52 (4.0-11.0) K/uL RBC 4.87 (4.30-5.90) M/uL Hgb 13.5 (12.0-16.0) g/dL Hct 41.1 (36.0-46.0) % MCV 84.4 (80.0-98.0) fL MCH 27.7 (27.0-32.0) pg MCHC 32.8 (31.0-37.0) g/dL RDW Std Deviation 46.1 (28.0-62.0) fl RDW Coeff of Maurizio 15 (11.0-15.0) % Plt Count 330 (150-400) K/uL MPV 11.00 (7.40-12.00) fL Neut % (Auto) 57.8 (48.0-80.0) % Lymph % (Auto) 29.7 (16.0-40.0) % [place] % (Auto) 11.4 (0.0-15.0) % Eos % (Auto) 0.8 (0.0-7.0) % Baso % (Auto) 0.3 (0.0-1.5) % Neut # (Auto) 4.4 (1.4-5.7) K/uL Lymph # (Auto) 2.2 (0.6-2.4) K/uL [place] # (Auto) 0.9 H (0.0-0.8) K/uL Eos # (Auto) 0.1 (0.0-0.7) K/uL Baso # (Auto) 0.0 (0.0-0.1) K/uL Nucleated RBC % 0.0 /100WBC Nucleated RBCs # 0 K/uL INR 1.03 APTT 27.2 (18.6-31.3) SEC Sodium 140 (136-145) mmol/L Potassium 3.8 (3.5-5.1) mmol/L Chloride 103 (98-107) mmol/L Carbon Dioxide 23.8 (21.0-32.0) mmol/L BUN 11 (7.0-18.0) mg/dL Creatinine 0.8 (0.6-1.0) mg/dL Est Cr Clr Drug Dosing 102.39 mL/min Estimated GFR (MDRD) > 60.0 ml/min Glucose 80 (74-106) mg/dL Calcium 8.7 (8.5-10.1) mg/dL Total Bilirubin 0.5 (0.2-1.0) mg/dL AST 11 L (15-37) IU/L ALT 19 (14-63) IU/L Alkaline Phosphatase 88 (46-116) U/L Troponin I < 0.050 (0.000-0.056) ng/mL Total Protein 7.7 (6.4-8.2) g/dL Albumin 4.0 (3.4-5.0) g/dL Globulin 3.7 (2.6-4.0) g/dL Albumin/Globulin Ratio 1.1 (0.9-1.6) TSH 3rd Generation 1.06 (0.36-3.74) uIU/mL HCG, Qual (NEG) Urine Color Urine Appearance Urine pH (5.0-8.0) Ur Specific [place] (1.001-1.035) Urine Protein (NEGATIVE) mg/dL Urine Glucose (UA) (NEGATIVE) mg/dL Urine Ketones (NEGATIVE) mg/dL Urine Occult Blood (NEGATIVE) Urine Nitrite (NEGATIVE) Urine Bilirubin (NEGATIVE) Urine Urobilinogen (<2.0) EU/dL Ur Leukocyte Esterase (NEGATIVE) Urine Opiates Screen (NEGATIVE) Ur Oxycodone Screen (NEGATIVE) Urine Methadone Screen (NEGATIVE) Ur Barbiturates Screen (NEGATIVE) Ur Phencyclidine Scrn (NEGATIVE) Ur Amphetamine Screen (NEGATIVE) U Methamphetamines Scrn (NEGATIVE) U Benzodiazepines Scrn (NEGATIVE) U Cocaine Metab Screen (NEGATIVE) U Marijuana (THC) Screen (NEGATIVE) Ethyl Alcohol <3 mg/dL SARS-CoV-2 RNA (UMM) (NEGATIVE) 10/11/20 10/11/20 10/11/20 Range/Units 17:17 17:42 17:42 WBC (4.0-11.0) K/uL RBC (4.30-5.90) M/uL Hgb (12.0-16.0) g/dL Hct (36.0-46.0) % MCV (80.0-98.0) fL MCH (27.0-32.0) pg MCHC (31.0-37.0) g/dL RDW Std Deviation (28.0-62.0) fl RDW Coeff of Maurizio (11.0-15.0) % Plt Count (150-400) K/uL MPV (7.40-12.00) fL Neut % (Auto) (48.0-80.0) % Lymph % (Auto) (16.0-40.0) % [place] % (Auto) (0.0-15.0) % Eos % (Auto) (0.0-7.0) % Baso % (Auto) (0.0-1.5) % Neut # (Auto) (1.4-5.7) K/uL Lymph # (Auto) (0.6-2.4) K/uL [place] # (Auto) (0.0-0.8) K/uL Eos # (Auto) (0.0-0.7) K/uL Baso # (Auto) (0.0-0.1) K/uL Nucleated RBC % /100WBC Nucleated RBCs # K/uL INR APTT (18.6-31.3) SEC Sodium (136-145) mmol/L Potassium (3.5-5.1) mmol/L Chloride (98-107) mmol/L Carbon Dioxide (21.0-32.0) mmol/L BUN (7.0-18.0) mg/dL Creatinine (0.6-1.0) mg/dL Est Cr Clr Drug Dosing mL/min Estimated GFR (MDRD) ml/min Glucose (74-106) mg/dL Calcium (8.5-10.1) mg/dL Total Bilirubin (0.2-1.0) mg/dL AST (15-37) IU/L ALT (14-63) IU/L Alkaline Phosphatase (46-116) U/L Troponin I (0.000-0.056) ng/mL Total Protein (6.4-8.2) g/dL Albumin (3.4-5.0) g/dL Globulin (2.6-4.0) g/dL Albumin/Globulin Ratio (0.9-1.6) TSH 3rd Generation (0.36-3.74) uIU/mL HCG, Qual NEGATIVE (NEG) Urine Color DARK YELLOW Urine Appearance SLT CLOUDY Urine pH 5.5 (5.0-8.0) Ur Specific [place] >= 1.030 (1.001-1.035) Urine Protein NEGATIVE (NEGATIVE) mg/dL Urine Glucose (UA) NEGATIVE (NEGATIVE) mg/dL Urine Ketones TRACE H (NEGATIVE) mg/dL Urine Occult Blood NEGATIVE (NEGATIVE) Urine Nitrite NEGATIVE (NEGATIVE) Urine Bilirubin NEGATIVE (NEGATIVE) Urine Urobilinogen 0.2 (<2.0) EU/dL Ur Leukocyte Esterase NEGATIVE (NEGATIVE) Urine Opiates Screen NEGATIVE (NEGATIVE) Ur Oxycodone Screen NEGATIVE (NEGATIVE) Urine Methadone Screen NEGATIVE (NEGATIVE) Ur Barbiturates Screen NEGATIVE (NEGATIVE) Ur Phencyclidine Scrn NEGATIVE (NEGATIVE) Ur Amphetamine Screen NEGATIVE (NEGATIVE) U Methamphetamines Scrn NEGATIVE (NEGATIVE) U Benzodiazepines Scrn NEGATIVE (NEGATIVE) U Cocaine Metab Screen NEGATIVE (NEGATIVE) U Marijuana (THC) Screen NEGATIVE (NEGATIVE) Ethyl Alcohol mg/dL SARS-CoV-2 RNA (UMM) (NEGATIVE) 10/11/20 Range/Units 18:02 WBC (4.0-11.0) K/uL RBC (4.30-5.90) M/uL Hgb (12.0-16.0) g/dL Hct (36.0-46.0) % MCV (80.0-98.0) fL MCH (27.0-32.0) pg MCHC (31.0-37.0) g/dL RDW Std Deviation (28.0-62.0) fl RDW Coeff of Maurizio (11.0-15.0) % Plt Count (150-400) K/uL MPV (7.40-12.00) fL Neut % (Auto) (48.0-80.0) % Lymph % (Auto) (16.0-40.0) % [place] % (Auto) (0.0-15.0) % Eos % (Auto) (0.0-7.0) % Baso % (Auto) (0.0-1.5) % Neut # (Auto) (1.4-5.7) K/uL Lymph # (Auto) (0.6-2.4) K/uL [place] # (Auto) (0.0-0.8) K/uL Eos # (Auto) (0.0-0.7) K/uL Baso # (Auto) (0.0-0.1) K/uL Nucleated RBC % /100WBC Nucleated RBCs # K/uL INR APTT (18.6-31.3) SEC Sodium (136-145) mmol/L Potassium (3.5-5.1) mmol/L Chloride (98-107) mmol/L Carbon Dioxide (21.0-32.0) mmol/L BUN (7.0-18.0) mg/dL Creatinine (0.6-1.0) mg/dL Est Cr Clr Drug Dosing mL/min Estimated GFR (MDRD) ml/min Glucose (74-106) mg/dL Calcium (8.5-10.1) mg/dL Total Bilirubin (0.2-1.0) mg/dL AST (15-37) IU/L ALT (14-63) IU/L Alkaline Phosphatase (46-116) U/L Troponin I (0.000-0.056) ng/mL Total Protein (6.4-8.2) g/dL Albumin (3.4-5.0) g/dL Globulin (2.6-4.0) g/dL Albumin/Globulin Ratio (0.9-1.6) TSH 3rd Generation (0.36-3.74) uIU/mL HCG, Qual (NEG) Urine Color Urine Appearance Urine pH (5.0-8.0) Ur Specific [place] (1.001-1.035) Urine Protein (NEGATIVE) mg/dL Urine Glucose (UA) (NEGATIVE) mg/dL Urine Ketones (NEGATIVE) mg/dL Urine Occult Blood (NEGATIVE) Urine Nitrite (NEGATIVE) Urine Bilirubin (NEGATIVE) Urine Urobilinogen (<2.0) EU/dL Ur Leukocyte Esterase (NEGATIVE) Urine Opiates Screen (NEGATIVE) Ur Oxycodone Screen (NEGATIVE) Urine Methadone Screen (NEGATIVE) Ur Barbiturates Screen (NEGATIVE) Ur Phencyclidine Scrn (NEGATIVE) Ur Amphetamine Screen (NEGATIVE) U Methamphetamines Scrn (NEGATIVE) U Benzodiazepines Scrn (NEGATIVE) U Cocaine Metab Screen (NEGATIVE) U Marijuana (THC) Screen (NEGATIVE) Ethyl Alcohol mg/dL SARS-CoV-2 RNA (UMM) NEGATIVE (NEGATIVE) Meds: Medications Generic Name Dose Route Start Last Admin Trade Name Freq PRN Reason Stop Dose Admin Sodium Chloride 10 ml 10/11/20 16:47 10/11/20 17:51 Saline Flush FLUSH 10 ml ASDIRECTED PRN Administration Keep Vein Open Sodium Chloride 2.5 ml 10/11/20 16:47 10/11/20 17:51 Saline Flush FLUSH 2.5 ml ASDIRECTED PRN Administration Keep Vein Open Discontinued Medications Generic Name Dose Route Start Last Admin Trade Name Freq PRN Reason Stop Dose Admin Iopamidol 100 ml 10/11/20 18:47 10/11/20 18:47 Isovue-370 (76%) IVPUSH 10/11/20 18:48 100 ml ONETIME ONE Administration Lorazepam 1 mg 10/11/20 17:42 10/11/20 17:51 Ativan IVPUSH 10/11/20 17:43 1 mg ONETIME ONE Administration Departure - Departure Time of Disposition: 20:11 Condition: Good Sepsis Event Note (ED) - Focused Exam Vital Signs: Vital Signs Temp Pulse Resp BP Pulse Ox 10/11/20 19:44 98.5 F 112 H 15 128/84 97 10/11/20 16:55 97 F 102 H 16 128/73 96
[2020-10-11] MEDS ORDERED: LORazepam 2 MG/ML SDV IVPUSH ONE (17:42)
[2020-10-11 17:51] LABS: BLOOD UREA NITROGEN,BUN 11 mg/dL (7.0-18.0); CARBON DIOXIDE,CO2 23.8 mmol/L (21.0-32.0); CHLORIDE,CL 103 mmol/L (98-107); GLUCOSE RANDOM 80 mg/dL (74-106); POTASSIUM,K 3.8 mmol/L (3.5-5.1); SODIUM,NA 140 mmol/L (136-145)
[2020-10-11] MEDS ORDERED: Iopamidol 755 Mg/ML 100 ML Bottle IVPUSH ONE (18:47)
--- NOTE | 2020-10-11 18:55 | CR ---
INDICATION: Hanging attempt TECHNIQUE: Singing view chest. FINDINGS: The lungs are clear. The heart, mediastinum and pulmonary vessels are of normal size. There is no evidence of pleural disease. IMPRESSION: Negative chest. Dictated by Suzan Chiu MD @ Oct 11 2020 6:51PM Signed by Dr. Suzan Chiu @ Oct 11 2020 6:52PM
--- NOTE | 2020-10-11 19:17 | CT ---
INDICATION: Hanging attempt. CT HEAD WITHOUT CONTRAST TECHNIQUE: Multiple axial CT images were performed through the head without intravenous contrast administration. COMPARISON: 05/11/[address] FINDINGS: No acute intracranial hemorrhage is identified. No extra-axial collections are evident and there is no mass effect or midline shift. Ventricles are normal in size and configuration. Brain parenchyma appears normal with unremarkable mcduffie-white differentiation. Osseous structures are within normal limits and no fractures are seen. Included portions of the paranasal sinuses and mastoid air cells are normally aerated. IMPRESSION: Normal non-contrast head CT. LEE ANN BUNDY MD [facility] [employer] Dictated by: Zoran Bundy MD @ 10/11/2020 19:16:51 (Electronically Signed)
--- NOTE | 2020-10-11 19:18 | CT ---
DATE: 10/11/2020 CLINICAL HISTORY: Patient with attempted hanging TECHNIQUE: Standard helical CT image acquisition through the head and neck was performed after intravenous contrast bolus enhancement. Multiplanar reconstructed images were performed and interpreted. COMPARISON: CT same day. FINDINGS: The origins of the great vessels from the aortic arch are patent. The origin of the right vertebral artery is patent. The origin of the left vertebral artery is patent. The common carotid arteries are patent There is no stenosis at the origin of the right internal carotid artery. There is no stenosis at the origin of the left internal carotid artery. The rest of the cervical segments of the internal carotid arteries are patent up to their intracranial segments. The intracranial segments of the internal carotid arteries are patent. The vertebral arteries are codominant. The cervical segments of the vertebral arteries are patent. The intracranial segments of the vertebral arteries are patent. The middle cerebral arteries are normal without aneurysm or proximal occlusion identified. The anterior cerebral arteries are normal without aneurysm or proximal occlusion identified. The anterior communicating artery is well visualized and appears normal. The basilar artery is normal without aneurysm or occlusion. The posterior cerebral arteries are normal without aneurysm or proximal occlusion. There is normal opacification of major intracranial venous structures. The visualized lung apices are unremarkable The thyroid gland is unremarkable. The soft tissues of the neck are unremarkable. There are degenerative changes in the cervical spine. IMPRESSION: Normal CT angiogram of the head and neck. Please note that all CT scans at this facility use dose modulation, iterative reconstruction, and/or weight-based dosing when appropriate to reduce radiation dose to as low as reasonably achievable. Dictated by Blake Hannon MD @ Oct 11 2020 7:39PM Signed by Dr. Blake Hannon @ Oct 11 2020 7:46PM
== END 2020-10-11 22:11 ==
LOC: MW.ED 16:13
DX: T71.161A Asphyxiation due to hanging, accidental, initial encounter (principal); F33.2 Major depressive disorder, recurrent severe without psychotic features; Z88.6 Allergy status to analgesic agent; Z88.8 Allergy status to other drugs, medicaments and biological substances; Z79.899 Other long term (current) drug therapy; Z20.822 Contact with and (suspected) exposure to COVID-19
CPT/HCPCS: 36415; 70450; 70496; 70498; 71045; 80053; 80179; 80305; 81003; 84443; 84484; 84703; 85025; 85610; 85730; 87635; 93005; 96374; 99285; J2060; Q9967; 93010; U0002